=== PATIENT | male | born 1965 | race Asian ===

== ENCOUNTER 2021-08-11 10:09 | Outpatient (RCR) | payer OTHER, SELFPAY | END 2021-08-19 12:32 | disposition home or self-care (01) | LOC: HO.WCC 10:09 | PROVIDERS: PCP Physician Assistant Medical; Referring Provider Physician Assistant Medical; Visit Provider Surgery | DX: S30.821A Blister (nonthermal) of abdominal wall, initial encounter (principal); T83.038D Leakage of other urinary catheter, subsequent encounter; G82.51 Quadriplegia, C1-C4 complete; Z87.891 Personal history of nicotine dependence; Z79.899 Other long term (current) drug therapy | CPT/HCPCS: 10140; 99212 ==

== ENCOUNTER 2021-09-13 11:22 | Outpatient (RCR) | payer OTHER, SELFPAY | END 2021-09-29 11:35 | disposition home or self-care (01) | LOC: HO.WCC 11:22 | PROVIDERS: PCP Physician Assistant Medical; Visit Provider Physician Assistant | DX: Z09 Encounter for follow-up examination after completed treatment for conditions other than malignant neoplasm (principal); L30.9 Dermatitis, unspecified; G82.50 Quadriplegia, unspecified; Z87.891 Personal history of nicotine dependence; Z99.3 Dependence on wheelchair; Z87.2 Personal history of diseases of the skin and subcutaneous tissue | CPT/HCPCS: 99212 ==

== ENCOUNTER 2023-05-25 07:55 | Emergency (ER) | payer OTHER, MEDICAID, SELFPAY ==
[2023-05-25 08:04] VITALS: BP 136/90; BP 146/79; PULSE 74; PULSE 79; RESP 17; TEMP 36.9; O2SAT 95; O2SAT 96; BMI 25.0
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
--- OUTSIDE RECORDS SUMMARY | 2023-05-25 08:27 | XMS_ITS | Continuity of Care Document ---
Author Name Unknown Organization [facility] Address [address] [place] [address] [address], [address] [place] [address]- Care Team Providers Care Head Automatic Sawyer Name Role Phone Allie Souza MD Primary Care Physician Encounter [facility] Date(s): 08/02/21 - 09/15/21 [facility] [address] [place] [address] Drive, [address] [place], [place] [address] Attending Physician: Nina Lyn MD Referring Physician: Allie Souza MD Allergies, Adverse Reactions, Alerts Substance Reaction Severity Status NKA Active Immunizations Given and Recorded Vaccine Date Status Refusal Reason influenza virus vaccine, inactivated 08/17/16 Give n influenza virus vaccine, inactivated 08/05/15 Give n influenza virus vaccine, inactivated 08/08/14 Give n influenza virus vaccine, inactivated 1 10/31/12 Gi clarice tetanus-diphtheria toxoids (Td) 03/20/07 Given 1Admin Note: [facility] Medications baclofen 20 mg oral tablet See Instructions, 1 tablet By Mouth morning & afternoon and 1.5 to 2 tablets at night., # 120 tablet, Refills 0, Maintenance, 07/15/21 10:17:00 EDT, Instructions Replace Required Details, Partialfill upon patient request if the prescription is for a... Start Date: 07/15/21 Status: Ordered bisacodyl 10 mg rectal suppository 1 supp = 10 mg, Rectally, Daily in AM, 0 Refills, Maintenance, 03/08/21 11:23:00 EDT, Suppository, Partial fill upon patient request if the prescription is for a schedule II opioid drug. Start Date: 03/08/21 Status: Ordered Colace sodium 100 mg oral capsule 100 mg, 1, capsule, By Mouth, 3 times a day, Refills 0, Maintenance, 03/08/21 11:23:00 EDT, Partialfill upon patient request if the prescription is for a schedule II opioid drug. Start Date: 03/08/21 Status: Ordered gabapentin 300 mg oral capsule See Instructions, 2 capsules by Mouth 3 times a day and 2-3 capsules at night, # 270, Refills 5, Maintenance, 07/20/21 12:04:00 EDT, Instructions Replace Required Details, Partial fill upon patient request if the prescription is for a schedule II opio... Start Date: 07/20/21 Status: Ordered oxybutynin 5 mg/24 hours oral tablet, extended release 1 tablet = 5 mg, By Mouth, Daily at bedtime, # 30 tablet, 0 Refills, Maintenance, 08/11/21 15:56:00EDT, ER Tablet, Partial fill upon patient request if the prescription is for a schedule II opioid drug. Start Date: 08/11/21 Status: Ordered PriLOSEC OTC 20 mg oral delayed release tablet 1 tablet = 20 mg, By Mouth, Daily in AM, # 90 tablet, 0 Refills, Maintenance, 07/15/21 10:16:00 EDT, CR Tablet, Partial fill upon patient request if the prescription is for a schedule II opioid drug. Start Date: 07/15/21 Status: Ordered PT EVAL and TX PT EVAL and TX, See Instructions, Refills 0, Tot. Refills 0, Maintenance, bilat CTS and cervical strain, 03/27/14 15:22:36, 10 week(s), Compound Start Date: 03/27/14 Status: Ordered right carpal tunnel splint right carpal tunnel splint, See Instructions, # 1 each, Refills 0, Tot. Refills 0, Maintenance, CTS, 03/27/14 15:25:10, Compound Start Date: 03/27/14 Status: Ordered senna 187 mg oral tablet 2 tablet = 17.2 mg, By Mouth, Daily at bedtime, 0 Refills, Maintenance, 03/08/21 11:23:00 EDT, Tablet, Partial fill upon patient request if the prescription is for a schedule II opioid drug. Start Date: 03/08/21 Status: Ordered tiZANidine 4 mg oral capsule 2 capsule = 8 mg, By Mouth, 3 times a day, # 90 capsule, 0 Refills, Maintenance, 07/15/21 10:23:00 EDT, Capsule, Partial fill upon patient request if the prescription is for a schedule II opioid drug. Start Date: 07/15/21 Status: Ordered traZODone 50 mg oral tablet 50 mg, 1, tablet, By Mouth, Daily at bedtime, # 30 tablet, Refills 0, Maintenance, 07/15/21 10:23:00 EDT, Partial fill upon patient request if the prescription is for a schedule II opioid drug. Start Date: 07/15/21 Status: Ordered Tylenol 325 mg oral tablet 650 mg, 2, tablet, By Mouth, Every 4 hours, PRN, Refills 0, Maintenance, Pain , Mild, 03/08/21 11:22:00 EDT, Partial fill upon patient request if the prescription is for a schedule II opioid drug. Start Date: 03/08/21 Status: Ordered Valium 5 mg oral tablet 5 mg, 1, tablet, By Mouth, 2 times a day, Refills 0, Maintenance, 05/26/21 12:24:00 EDT, Partial fill upon patient request if the prescription is for a schedule II opioid drug. Start Date: 05/26/21 Status: Ordered Vitamin D3 2000 intl units oral capsule 1 capsule = 50 mcg, By Mouth, Daily in AM, # 60 capsule, 0 Refills, Maintenance, 07/15/21 10:18:00 EDT, Capsule, Partial fill upon patient request if the prescription is for a schedule II opioid drug. 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
--- OUTSIDE RECORDS SUMMARY | 2023-05-25 08:27 | XMS_ITS | Continuity of Care Document ---
Author Name Unknown Organization [facility] Address Unknown Care Team Providers Care Director Of Research And Development Name Role Phone Harley CHA, Allie Guzman Primary Care Physician [phone] Encounter [facility] [place] Date(s): 10/13/21 - 11/12/21 [facility] Allergies, Adverse Reactions, Alerts No Known Allergies Immunizations Given and Recorded Vaccine Date Status Refusal Reason influenza virus vaccine, inactivated 08/17/16 Give n influenza virus vaccine, inactivated 08/05/15 Give n influenza virus vaccine, inactivated 08/08/14 Give n influenza virus vaccine, inactivated 1 10/31/12 Gi clarice tetanus-diphtheria toxoids (Td) 03/20/07 Given 1Admin Note: [facility] Medications baclofen 20 mg oral tablet See Instructions, 1.5 tablet By Mouth Morning and night, 1.5-2 tablets midday., # 150 tablet, Refills 5, Tot. Refills 5, Maintenance, 10/20/21 15:43:00 EST, Instructions Replace Required Details, Route to Pharmacy Electronically, [facility]/pharmacy #[id number], 1... Start Date: 10/20/21 Status: Ordered bisacodyl 10 mg rectal suppository [...] opioid drug. Start Date: 07/15/21 Status: Ordered tiZANidine 4 mg oral tablet 12 mg, 3, tablet, By Mouth, 3 times a day, # 270 tablet, Refills 5, Tot. Refills 5, Maintenance, 10/20/21 15:46:00 EST, Route to Pharmacy Electronically, [facility]/pharmacy #[id number], 170, cm, 10/07/21 14:16:00 EST, Height, 70.4, kg, 07/15/21 10:52:00 EDT, Dry... Start Date: 10/20/21 Status: Ordered traZODone 50 mg oral tablet [...]
--- OUTSIDE RECORDS SUMMARY | 2023-05-25 08:27 | XMS_ITS | Continuity of Care Document ---
Author Name Unknown Organization [facility] Address [address] [place] [id number]- Care Team Providers Care Tool Filer Hand Name Role Phone Allie Souza MD Primary Care Physician Encounter [facility] Date(s): 12/04/22 - 12/11/22 [facility] [address] [place] [id number]- Attending Physician: Manoj Price MD Referring Physician: Allie Souza MD Allergies, Adverse Reactions, Alerts No Known Allergies [...] tablet, Refills 5, Tot. Refills 5, Maintenance, 02/16/22 16:48:00 EDT, Instructions Replace Required Details, Route to Pharmacy Electronically, [facility]/pharmacy #[id number], 1... Start Date: 02/16/22 Status: Ordered bisacodyl 10 mg rectal suppository 1 supp = 10 mg, Rectally, Daily in AM, 0 Refills, Maintenance, 03/08/21 11:23:00 EDT, Suppository, Partial fill upon patient request if the prescription is for a schedule II opioid drug. Start Date: 03/08/21 Status: Ordered Botox 100 units injection See Instructions, 400 units for MD to inject, # 1 kit, 0 Refills, Maintenance, 01/26/22 16:29:00 EDT, Partial fill upon patient request if the prescription is for a schedule II opioid drug. Start Date: 01/26/22 Status: Ordered Colace sodium 100 mg oral capsule 100 mg, 1, capsule, By Mouth, 3 times a day, Refills 0, Maintenance, 03/08/21 11:23:00 EDT, Partialfill upon patient request if the prescription is for a schedule II opioid drug. Start Date: 03/08/21 Status: Ordered gabapentin 300 mg oral capsule 300 mg, 1, capsule, By Mouth, 3 times a day, Refills 0, Maintenance, 11/22/22 17:14:00 EST, Partialfill upon patient request if the prescription is for a schedule II opioid drug. Start Date: 11/22/22 Status: Ordered gabapentin 300 mg oral capsule See Instructions, Continue current ramp-up to 3 capsules in a.m. and 4 capsules afternoon and night., # 330 capsule, Refills 5, Tot. Refills 5, Maintenance, 11/28/22 13:44:00 EST, Instructions Replace Required Details, Print Requisition, 170, cm, 07/22... Start Date: 11/28/22 Status: Ordered oxybutynin 5 mg/24 hours oral [...] 03/27/14 15:22:36, 10 week(s), Compound Start Date: 6/6/14 Status: Ordered right carpal tunnel splint right [...] 03/08/21 Status: Ordered tiZANidine 4 mg oral tablet 3, tablet, By Mouth, 3 times a day, # 270 tablet, Refills 5, Route to Pharmacy Electronically, [id number], 170, cm, 04/03/22 8:23:00 EDT, Height, 70.4, kg, 07/15/21 10:52:00 EDT, Dry Weight Start Date: 06/09/22 Status: Ordered traZODone 50 mg oral tablet [...] Date: 07/15/21 Status: Ordered Problem List Condition Confirmation Course Effective Dates Status Health St atus Informant Abstinent alcoholic Confirmed Active Neurogenic bladder due to quadriplegia Confirmed Active Neurogenic bowel Confirmed Active Neuropathic pain Confirmed Active Therapeutic drug monitoring Confirmed Active Spasticity Confirmed Active Chronic tetraplegia Confirmed Active Vital Signs Most recent to oldest [Reference Range]: 1 Height 170 cm (12/04/22 9:58 AM) Oxygen Saturation [94-100 %] 97 % (12/04/22 9:58 AM) Pulse Rate [55-90 bpm] 63 bpm (12/04/22 9:58 AM) Blood Pressure [90-138/55-84 mm Hg] 118/ 86mm Hg (12/04/22 9:58 AM) Mode of Delivery (Oxygen) Room air (12/04/22 9:58 AM) Blood pressure sites Arm, left (12/04/22 9:58 AM) Social History Social History Type Response Smoking Status Former smoker; Tobac co user in household: No entered on: 03/27/14 Sex Patient Care team information Care Team Personnel Name: Bryn Peters RN Position: [facility] RN Member Role: Primary Care Nurse Name: Jose Roberto Barakat RN Position: [facility] RN Member Role: Primary Care Nurse Name: Faustina Jarrell RN Position: [facility] RN Member Role: Primary Care Nurse Name: Katya Moore RN Position: [facility] RN Member Role: Primary Care Nurse Name: Meir Lange RN Position: [facility] RN Member Role: Primary Care Nurse Name: Charley Gamble RN Position: [facility] RN Member Role: Primary Care Nurse Name: Allie Souza MD Position: [facility] Outreach Member Role: PCP Address: Address: [address] [place] [address] Name: Key Dewitt RN Position: [facility] RN Member Role: Primary Care Nurse Care Team Related Persons Name: AIDEN GARCÍA Address: home [address] [place] [address]
--- OUTSIDE RECORDS SUMMARY | 2023-05-25 08:27 | XMS_ITS | Continuity of Care Document ---
Author Name Unknown Organization [facility] Address Unknown Care Team Providers Care Printer'S Devil Name Role Phone Harley CHA, Allie Guzman Primary Care Physician Encounter [facility] Date(s): 10/13/21 - 11/12/21 [facility] Allergies, Adverse [...] Replace Required Details, Route to Pharmacy Electronically, [facility]/pharmacy #[id number], 1... Start Date: 10/20/21 Status: Ordered [...] 10/20/21 15:46:00 EST, Route to Pharmacy Electronically, [facility]/pharmacy #[id number], 170, cm, 10/07/21 14:16:00 EST, Height, [...]
--- OUTSIDE RECORDS SUMMARY | 2023-05-25 08:27 | XMS_ITS | Continuity of Care Document ---
Author Name Unknown Organization [facility] Address [address] [place] [id number]- Care Team Providers Care Technical Illustrator Name Role Phone Allie Souza MD Primary Care Physician [phone] Encounter [facility] Date(s): 12/19/22 - 01/18/23 [facility] [address] [place] [id number]- Allergies, Adverse Reactions, Alerts No Known Allergies Immunizations Given and Recorded Vaccine Date Status Refusal Reason influenza virus vaccine, inactivated 08/17/16 Give n influenza virus vaccine, inactivated 08/05/15 Give n influenza virus vaccine, inactivated 08/08/14 Give n influenza virus vaccine, inactivated 1 10/31/12 Gi clariec tetanus-diphtheria toxoids (Td) 03/20/07 Given 1Admin Note: [facility] Medications baclofen 20 mg oral tablet See Instructions, 1.5 tablet By Mouth Morning and night, 1.5-2 tablets midday., # 150 tablet, Refills 5, Tot. Refills 5, Maintenance, 12/15/22 12:37:00 EST, Instructions Replace Required Details, Route to Pharmacy Electronically, [facility]/pharmacy #2024, 1... Start Date: 12/15/22 Status: Ordered bisacodyl 10 mg rectal suppository [...] drug. Start Date: 11/22/22 Status: Ordered gabapentin 800 mg oral tablet See Instructions, 1 tablet By Mouth in a.m. and 1.5 tablets afternoon & nighttime., # 120 tablet, 5 Refills, Maintenance, 12/19/22 13:48:00 EST, Tablet, [facility]/pharmacy #[id number], Partial fill upon patient request if the prescription is for a schedule II opi... Start Date: 12/19/22 Status: Ordered oxybutynin 5 mg/24 hours oral [...] 270 tablet, Refills 5, Tot. Refills 5, 01/04/23 11:46:00 EDT,Route to Pharmacy Electronically, [facility]/pharmacy #2025, 170, cm, 01/04/23 11:17:00 EDT, Height, 70.4,kg, 07/15/21 10:52:00 EDT, Dry Weight Start Date: 01/04/23 Status: Ordered traZODone 50 mg oral tablet [...] Spasticity Confirmed Active Chronic tetraplegia Confirmed Active Social History Social History Type Response Smoking Status Former smoker; Tobac co user in household: No entered on: 03/27/14 Sex Patient Care team information Care Team Personnel Name: Bryn Peters RN Position: S RN Member Role: Primary Care Nurse Name: Jose Roberto Barakat RN Position: S RN Member Role: Primary Care Nurse Name: Faustina Jarrell RN Position: [facility] RN Member Role: Primary Care Nurse Name: Katya Moore RN Position: [facility] RN Member Role: Primary Care Nurse Name: Meir Lange RN Position: [facility] RN Member Role: Primary Care Nurse Name: Charley Gamble RN Position: [facility] RN Member Role: Primary Care Nurse Name: Allie Souza MD Position: [facility] Outreach Member Role: PCP Address: Address: [address] [place] [id number] Name: Key Dewitt RN Position: [facility] RN Member Role: Primary Care Nurse Care Team Related Persons Name: AIDEN GARCÍA Address: home [address] [place] [address]
--- OUTSIDE RECORDS SUMMARY | 2023-05-25 08:27 | XMS_ITS | Continuity of Care Document ---
Author Name Unknown Organization [facility] Address [address] [place], [place] [address]blanco spangler, [address] [place] [address]- Care Team Providers Care Yeast Culture Developer Name Role Phone Harley CHA, Allie Guzman Primary Care Physician [place] [facility] [place] 07[place]21 [facility] [address] [place] [address] Drive, [address] [place] [address]- Allergies, Adverse Reactions, Alerts Substance Reaction Severity Status NKA Active Immunizations Given and Recorded Vaccine Date Status Refusal Reason influenza virus vaccine, inactivated 08/17/16 Give n influenza virus vaccine, inactivated 08/05/15 Give n influenza virus vaccine, inactivated 08/08/14 Give n influenza virus vaccine, inactivated 1 10/31/12 Gi clarice tetanus-diphtheria toxoids (Td) 03/20/07 Given 1Admin Note: [facility] Artificial Tears 1.4% Eyes, Both, Every 4 hours, PRN Other, Dryness., 0 Refills, Maintenance, 03/08/21 11:23:00 EDT, Ophth Solution, Partial fill upon patient request if the prescription is for a schedule II opioid drug. Start Date: 03/08/21 Status: Ordered bisacodyl 10 mg rectal suppository 1 supp = 10 mg, Rectally, Daily in AM, 0 Refills, Maintenance, 03/08/21 11:23:00 EDT, Suppository, Partial fill upon patient request if the prescription is for a schedule II opioid drug. Start Date: 03/08/21 Status: Ordered Colace sodium 100 mg oral capsule 100 mg, 1, capsule, By Mouth, 2 times a day, Refills 0, Maintenance, 03/08/21 11:23:00 EDT, Partialfill upon patient request if the prescription is for a schedule II opioid drug. Start Date: 03/08/21 Status: Ordered Duoneb Inhalation Solution 1, vials, BAND Nebulizer, 4 times a day, Refills 0, Maintenance, 03/08/21 11:23:00 EDT, Inhalation Solution Start Date: 03/08/21 Status: Ordered Enoxaparin 0.3 mL = 30 mg, Subcutaneous Injection, 2 times a day, 0 Refills, Maintenance, 03/08/21 11:23:00 EDT, Injection, Partial fill upon patient request if the prescription is for a schedule II opioid drug. Start Date: 03/08/21 Status: Ordered gabapentin 100 mg oral capsule 100 mg, 1, capsule, By Mouth, 3 times a day, Refills 0, Maintenance, 03/08/21 11:23:00 EDT, Partialfill upon patient request if the prescription is for a schedule II opioid drug. Start Date: 03/08/21 Status: Ordered ibuprofen 200 mg oral tablet 2 tablet, By Mouth, Every 4 hours, PRN for pain, # 120 tablet, 0 Refills, Maintenance, 07/08/14 7:58:25, Tablet Start Date: 07/08/14 Status: Ordered Milk of Magnesia Liquid 30 mL, By Mouth, 2 times a day, PRN Constipation, 0 Refills, Maintenance, 03/08/21 11:23:00 EDT, Suspension, Partial fill upon patient request if the prescription is for a schedule II opioid drug. Start Date: 03/08/21 Status: Ordered PT EVAL and TX PT [...] opioid drug. Start Date: 03/08/21 Status: Ordered tamsulosin 0.4 mg oral capsule 0.4 mg, 1, capsule, By Mouth, Daily, Refills 0, Maintenance, 03/08/21 11:23:00 EDT, Partial fill upon patient request if the prescription is for a schedule II opioid drug. Start Date: 03/08/21 Status: Ordered Tylenol 325 mg oral tablet [...] opioid drug. Start Date: 05/26/21 Status: Ordered Problem List Condition Effective Dates Status Health Status Inform ant Abstinent alcoholic(Confirmed) Active Social History Social History Type Response Smoking Status Former smoker; Tobac co user in household: No entered on: 03/27/14 Sex
--- OUTSIDE RECORDS SUMMARY | 2023-05-25 08:27 | XMS_ITS | Continuity of Care Document ---
Author Name Unknown Organization [facility] Address [address] [place] [address]- Care Team Providers Care Ship Keeper Name Role Phone Harley CHA, Allie Guzman Primary Care Physician [place] [facility] [place] Date(s): 09/18/22 - 10/18/22 [facility] [address] [place] [address]- Allergies, Adverse Reactions, Alerts No Known Allergies [...] Replace Required Details, Route to Pharmacy Electronically, [facility]/pharmacy #[id number], 1... Start Date: 02/16/22 Status: [...] opioid drug. Start Date: 03/08/21 Status: Ordered oxybutynin 5 mg/24 hours oral tablet, extended release 1 tablet = 5 mg, By Mouth, Daily at bedtime, # 30 tablet, 0 Refills, Maintenance, 08/11/21 15:56:00EDT, ER Tablet, Partial fill upon patient request if the prescription is for a schedule II opioid drug. Start Date: 08/11/21 Status: Ordered pregabalin 300 mg oral capsule 1 capsule = 300 mg, By Mouth, 2 times a day, Patient is on an increased dose. He ran out early as Itold him to double his previous dose & use up his 150 mg tablets., # 60 capsule, 5 Refills, Maintenance, 10/06/22 10:52:00 EST, Capsule, 170, cm, 08/09... Start Date: 10/06/22 Status: Ordered PriLOSEC OTC 20 mg oral [...] tablet, Refills 5, Route to Pharmacy Electronically, [id number], 170, cm, 04/03/22 8:23:00 EDT, Height, 70.4, [...] Jose Roberto Barakat RN Position: [facility] RN Member Role: Primary Care Nurse Name: Faustina Jarrell RN Position: [facility] RN Member Role: Primary Care Nurse Name: Katya Moore RN Position: [facility] RN Member Role: Primary Care Nurse Name: Meir Lange RN Position: [facility] RN Member Role: Primary Care Nurse Name: Charley Gamble RN Position: [facility] RN Member Role: Primary Care Nurse Name: Allie Souza MD Position: [facility] Outreach Member Role: PCP Address: Address: [address] [place] [id number] Name: Key Dewitt RN Position: [facility] RN Member Role: Primary Care Nurse Care Team Related Persons Name: ERINMYALauryn AIDEN Address: [address] [address]
--- OUTSIDE RECORDS SUMMARY | 2023-05-25 08:27 | XMS_ITS | Continuity of Care Document ---
Author Name Unknown Organization [facility] Address [address] [place] [address] an[address]bal, [address] [place] [address]- Care Team Providers Care Maintenance Mechanic Telephone Name Role Phone Allie Souza MD Primary Care Physician [phone] Encounter [facility] [place] Date(s): 03/17/21 - 05/19/21 [facility] [address] [place] [address] Drive, [address] [place] [address]- Attending Physician: Nina Lyn MD Allergies, Adverse Reactions, Alerts Substance Reaction [...] opioid drug. Start Date: 03/08/21 Status: Ordered Problem List Condition Effective Dates Status Health Status Inform ant Abstinent alcoholic(Confirmed) Active Social History Social History Type Response Smoking Status Former smoker; Tobac co user in household: No entered on: 03/27/14 Sex
--- OUTSIDE RECORDS SUMMARY | 2023-05-25 08:27 | XMS_ITS | Continuity of Care Document ---
Author Name Unknown Organization [facility] Address [address] [place] [address]- Care Team Providers Care Sewing Machine Operator Paper Bags Name Role Phone Allie Souza MD Primary Care Physician [place] [facility] [place] - 11/19/22 [facility] [address]- [place] Allergies, Adverse Reactions, Alerts No Known Allergies [...] Replace Required Details, Route to Pharmacy Electronically, [facility]/pharmacy #2024, 1... Start Date: 02/16/22 Status: [...] tablet, Refills 5, Route to Pharmacy Electronically, [id number], 170, cm, 04/03/22 8:23:00 EDT, Height, 70.4, [...] Care team information Care Team Personnel Name: Lorraine CHRISTIAN, Bryn Position: [facility] RN Member Role: Primary Care Nurse Name: Jose Roberto Barakat RN Position: [facility] RN Member Role: Primary Care Nurse Name: Faustina Jarrell RN Position: [facility] RN Member Role: Primary Care Nurse Name: Katya Moore RN Position: [facility] RN Member Role: Primary Care Nurse Name: Anisa CHRISTIAN, Meir Position: [facility] RN Member Role: Primary Care Nurse Name: Charley Gamble RN Position: [facility] RN Member Role: Primary Care Nurse Name: Allie Souza MD Position: [facility] Outreach Member Role: PCP Address: Address: [address] [place] [id number] Name: Key Dewitt RN Position: [facility] RN Member Role: Primary Care Nurse Care Team Related Persons Name: ERINAIDEN BRAN Address: [address] [address]
--- OUTSIDE RECORDS SUMMARY | 2023-05-25 08:27 | XMS_ITS | Continuity of Care Document ---
Author Name Unknown Organization [facility] Address [address] [place] [address]- Care Team Providers Care Chain Machine Operator Name Role Phone Harley CHA, Allie Guzman Primary Care Physician Encounter [facility] [place] Date(s): 02/26/23 - 03/28/23 [facility] [address] [place] [address]- Attending Physician: AdmJuan R chapman Admitting Physician: AdmtrJuan R Referring Physician: Admtr, Juan R Allergies, Adverse Reactions, Alerts No Known Allergies [...] Replace Required Details, Route to Pharmacy Electronically, [facility]/pharmacy #2024, 1... Start Date: 12/15/22 Status: Ordered [...] 5 Refills, Maintenance, 12/19/22 13:48:00 EST, Tablet, [facility]/pharmacy #5, Partial fill upon patient request if the [...] 5, 01/04/23 11:46:00 EDT,Route to Pharmacy Electronically, [facility]/pharmacy #2025, 170, cm, 01/04/23 11:17:00 EDT, Height, [...] Care Nurse Name: Faustina Jarrell RN Position: S RN Member Role: Primary Care Nurse Name: Katya Moore RN Position: S RN Member Role: Primary Care Nurse Name: Meir Lange RN Position: S RN Member Role: Primary Care Nurse Name: Charley Gamble RN Position: [facility] RN Member Role: Primary Care Nurse Name: Allie Souza MD Position: S Outreach Member Role: PCP Address: Address: [address] [place] [id number] Name: Key Dewitt RN Position: S RN Member Role: Primary Care Nurse Care Team Related Persons Name: ERINMYAAIDEN Combs Address: [address] [address]
--- OUTSIDE RECORDS SUMMARY | 2023-05-25 08:27 | XMS_ITS | Continuity of Care Document ---
Author Name Unknown Organization [facility] Address Unknown Care Team Providers Care Expeditionary Fighting Vehicle Crewman Name Role Phone Harley CHA, Allie Guzman Primary Care Physician [place] [facility] [place] 12[place]17/21 [facility] Attending Physician: Nehemiah CHA, Albert Csatillo Allergies, Adverse Reactions, Alerts No Known Allergies [...] Replace Required Details, Route to Pharmacy Electronically, [facility]/pharmacy #2024, 1... Start Date: 10/20/21 Status: Ordered [...] 10/20/21 15:46:00 EST, Route to Pharmacy Electronically, [facility]/pharmacy #2025, 170, cm, 10/07/21 14:16:00 EST, Height, [...]
--- OUTSIDE RECORDS SUMMARY | 2023-05-25 08:27 | XMS_ITS | Continuity of Care Document ---
Author Name Unknown Organization [facility] Address [address] [place] [address]- Care Team Providers Care Transport Conductor Name Role Phone Allie Souza MD Primary Care Physician [phone] [id number] Date[facility] 07/20/[facility] - 07/27/22 [facility] [address] [place] [address]- Attending Physician: Albert Cerna MD Referring Physician: Allie Souza MD Allergies, [...] Replace Required Details, Route to Pharmacy Electronically, [facility]/pharmacy #2024, 1... Start Date: 02/16/22 Status: [...] opioid drug. Start Date: 03/08/21 Status: Ordered Cymbalta 30 mg oral enteric coated capsule 1 capsule = 30 mg, By Mouth, 2 times a day, Take 1 tablet daily for 1 week then increase to 2 tablets if tolerating well., # 60 capsule, 5 Refills, Maintenance, 07/20/22 14:46:00 EDT, EC Capsule, [id number], 170, cm, 07/20/22 14:03:00... Start Date: 07/20/22 Status: Ordered gabapentin 300 mg oral capsule See Instructions, 3 capsules by Mouth in the morning & 4 capsules afternoon & night., # 330capsule, Refills 4, Tot. Refills 4, Maintenance, 03/14/22 8:50:00 EDT, Instructions Replace Required Details, Route to Pharmacy Electronically, [facility]/pharmacy #2... Start Date: 03/14/22 Status: Ordered oxybutynin 5 mg/24 hours oral [...] tablet, Refills 5, Route to Pharmacy Electronically, [id number], 170, cm, 04/03/22 8:23:00 EDT, Height, 70.4, [...] oldest [Reference Range]: 1 Height 170 cm (07/20/22 2:03 PM) Oxygen Saturation [94-100 %] 97 % (07/20/22 2:03 PM) Pulse Rate [55-90 bpm] 67 bpm (07/20/22 2:03 PM) Blood Pressure [90-138/55-84 mm Hg] 114/ 71mm Hg (07/20/22 2:03 PM) Mode of Delivery (Oxygen) Room air (07/20/22 2:03 PM) Blood pressure sites Arm, right (07/20/22 2:03 PM) Social History Social History Type Response Smoking Status Former smoker; Tobac co user in household: No entered on: 03/27/14 Sex Patient Care team information Personnel Name: Harley CHA , Allie Guzman Address: Address: [address] [place] [address]
--- OUTSIDE RECORDS SUMMARY | 2023-05-25 08:27 | XMS_ITS | Continuity of Care Document ---
Author Name Unknown Organization [facility] Address [address] [place] [address]- Care Team Providers Care Public Health Teacher Name Role Phone Allie Souza MD Primary Care Physician [phone] Encounter [facility] [place] Date(s): 07/21/21 - 07/21/[address] [address]- Discharge Disposition: A-D/C Home Attending Physician: Alan Aleman MD Admitting Physician: Alan Aleman MD Referring Physician: Alan Aleman MD Allergies, Adverse Reactions, Alerts Substance Reaction [...] II opio... Start Date: 07/20/21 Status: Ordered PriLOSEC OTC 20 mg oral [...] Active Neurogenic bowel(Confirmed) Active Neuropathic pain(Confirmed) Active Spasticity(Confirmed) Active Chronic tetraplegia(Confirmed) Active Vital Signs Most recent to oldest [Reference Range]: 1 2 3 Height 170 cm (07/21/21 2:40 PM) 170 cm (07/15/21 8:55 AM) Weight 70.4 kg (07/21/21 2:40 PM) 70.4 kg (07/15/21 8:55 AM) Oxygen Saturation [94-100 %] 94 % (07/21/21 5:00 PM) 96 % (07/21/21 4:45 PM) 100 % (07/21/21 4:30 PM) Pulse Rate [55-90 bpm] 85 bpm (07/21/21 2:40 PM) Body Mass Index [18.5-24.99] 24.36 (07/21/21 2:40 PM) 24.36 (07/15/21 8:55 AM) Blood Pressure [90-138/55-84 mm Hg] 126/90mm Hg (07/21/21 5:00 PM) 122/84mm Hg (07/21/21 4:45 PM) 123/78mm Hg (07/21/21 4:30 PM) Respiratory Rate [16-30 br/min] 15 br/min *L* (07/21/21 5:00 PM) 15 br/min *L* (07/21/21 4:45 PM) 10 br/min *L* (07/21/21 4:30 PM) Temperature [96.8-100.4 DegF] 98.9 DegF (07/21/21 5:00 PM) 99.3 DegF (07/21/21 4:15 PM) 98.8 DegF (07/21/21 2:40 PM) Liters per Minute 5 L/min (07/21/21 4:15 PM) Mode of Delivery (Oxygen) Room air (07/21/21 5:00 PM) Room air (07/21/21 4:45 PM) Simple face mask (07/21/21 4:30 PM) Blood pressure sites Arm, right (07/21/21 5:00 PM) Arm, right (07/21/21 4:45 PM) Arm, right (07/21/21 4:30 PM) Temperature Route Temporal (07/21/21 5:00 PM) Temporal (07/21/21 4:15 PM) Temporal (07/21/21 2:40 PM) Dry Weight 70.4 kg (07/15/21 8:55 AM) Weight Obtained Via Patient/family state d (07/15/21 8:55 AM) Dry Weight Obtained Via Patient/family s tated (07/15/21 8:55 AM) Social History Social History Type Response Smoking Status Former smoker; Tobac co user in household: No entered on: 03/27/14 Sex
--- OUTSIDE RECORDS SUMMARY | 2023-05-25 08:27 | XMS_ITS | Continuity of Care Document ---
Author Name Unknown Organization [facility] Address Unknown Care Team Providers Care Hose Maker Name Role Phone Allie Souza MD Primary Care Physician Encounter [facility] [place] Date(s): 03/13/22 - 04/12/22 [facility] Allergies, Adverse [...] Replace Required Details, Route to Pharmacy Electronically, [facility]/pharmacy #2024, 1... Start Date: 02/16/22 Status: Ordered [...] Replace Required Details, Route to Pharmacy Electronically, [facility]/pharmacy #2... Start Date: 03/14/22 Status: Ordered oxybutynin [...] 10/20/21 15:46:00 EST, Route to Pharmacy Electronically, [facility]/pharmacy #2025, 170, cm, 10/07/21 14:16:00 EST, Height, [...]
--- OUTSIDE RECORDS SUMMARY | 2023-05-25 08:27 | XMS_ITS | Continuity of Care Document ---
Author Name Unknown Organization [facility] Address Unknown Care Team Providers Care Voucher Clerk Name Role Phone Allie Souza MD Primary Care Physician [phone] Encounter [facility] [place] Date(s): 03/08/22 - 04/07/22 [facility] Allergies, Adverse Reactions, [...] Details, Route to Pharmacy Electronically, [facility]/pharmacy #2024, 1... Start Date: 02/16/22 Status: Ordered [...] Details, Route to Pharmacy Electronically, [facility]/pharmacy #2... Start Date: 03/14/22 Status: Ordered oxybutynin [...] EST, Route to Pharmacy Electronically, [facility]/pharmacy #2025, 170, cm, 10/07/21 14:16:00 [...]
--- OUTSIDE RECORDS SUMMARY | 2023-05-25 08:27 | XMS_ITS | Continuity of Care Document ---
Author Name Unknown Organization [facility] Address Unknown Care Team Providers Care Home Care Specialist Name Role Phone Allie Souza MD Primary Care Physician [phone] Encounter [facility] [place] Date(s): 02/16/22 - 03/18/22 [facility] Allergies, Adverse [...] Replace Required Details, Route to Pharmacy Electronically, [facility]/pharmacy #2024, 1... Start Date: 02/16/22 [...] Replace Required Details, Route to Pharmacy Electronically, [facility]/pharmacy #2... Start Date: 03/14/22 Status: [...] 10/20/21 15:46:00 EST, Route to Pharmacy Electronically, [facility]/pharmacy #2025, 170, cm, 10/07/21 14:16:00 [...]
--- OUTSIDE RECORDS SUMMARY | 2023-05-25 08:27 | XMS_ITS | Continuity of Care Document ---
Author Name Unknown Organization [facility] Address Unknown Care Team Providers Care Glove Sewer Name Role Phone Allie Souza MD Primary Care Physician [phone] En[place] [facility] [place] [id number] Date(s): 12/22/21 - 12/29/21 [facility] Attending Physician: Allie Souza MD Allergies, Adverse Reactions, [...] Replace Required Details, Route to Pharmacy Electronically, [facility]/pharmacy #2024, 1... Start Date: 10/20/21 Status: [...] 10/20/21 15:46:00 EST, Route to Pharmacy Electronically, [facility]/pharmacy #2025, 170, cm, 10/07/21 14:16:00 EST, [...] monitoring(Confirmed) Active Spasticity(Confirmed) Active Chronic tetraplegia(Confirmed) Active Vital Signs Most recent to oldest [Reference Range]: 1 Height 170 cm (12/22/21 12:55 PM) Oxygen Saturation [94-100 %] 98 % (12/22/21 12:55 PM) Pulse Rate [55-90 bpm] 74 bpm (12/22/21 12:55 PM) Blood Pressure [90-138/55-84 mm Hg] 114/ 73mm Hg (12/22/21 12:55 PM) Temperature [96.8-100.4 DegF] 97.0 DegF (12/22/21 12:55 PM) Blood pressure sites Arm, left (12/22/21 12:55 PM) Temperature Route Temporal (12/22/21 12:55 PM) Social History Social History Type Response Smoking Status Former smoker; Tobac co user in household: No entered on: 03/27/14 Sex
--- OUTSIDE RECORDS SUMMARY | 2023-05-25 08:27 | XMS_ITS | Continuity of Care Document ---
Author Name Unknown Organization [facility] Address [address] [place] [address]- Care Team Providers Care Infusion Pharmacist Name Role Phone Harley CHA, Allie Guzman Primary Care Physician En[place] [facility] [place] Date(s): 01/04/23 - 01/11/23 [facility] [address] [place] [address]- Attending Physician: Albert Cerna MD Allergies, Adverse Reactions, Alerts No Known [...] Replace Required Details, Route to Pharmacy Electronically, [facility]/pharmacy #2024, 1... Start Date: 12/15/22 Status: Ordered [...] 5 Refills, Maintenance, 12/19/22 13:48:00 EST, Tablet, [facility]/pharmacy #2024, Partial fill upon patient request if [...] 5, 01/04/23 11:46:00 EDT,Route to Pharmacy Electronically, [facility]/pharmacy #2025, 170, cm, 01/04/23 11:17:00 EDT, Height, [...] oldest [Reference Range]: 1 Height 170 cm (01/04/23 11:17 AM) Oxygen Saturation [94-100 %] 96 % (01/04/23 11:17 AM) Pulse Rate [55-90 bpm] 69 bpm (01/04/23 11:17 AM) Blood Pressure [90-138/55-84 mm Hg] 118/ 81mm Hg (01/04/23 11:17 AM) Mode of Delivery (Oxygen) Room air (01/04/23 11:17 AM) Blood pressure sites Arm, right (01/04/23 11:17 AM) Social History Social History Type Response Smoking Status Former smoker; Tobac co user in household: No entered on: 03/27/14 Sex Patient Care team information Care Team Personnel Name: Bryn Peters RN Position: [facility] RN Member Role: Primary Care Nurse Name: Jose Roberto Barakat RN Position: [facility] RN Member Role: Primary Care Nurse Name: Faustina Jarrell RN Position: [facility] RN Member Role: Primary Care Nurse Name: Katya Moore RN Position: [facility] RN Member Role: Primary Care Nurse Name: Meir Lange RN Position: [facility] RN Member Role: Primary Care Nurse Name: Charley Gamble RN Position: [facility] RN Member Role: Primary Care Nurse Name: Allie Souza MD Position: S Outreach Member Role: PCP Address: Address: [address] [place] [id number] Name: Key Dewitt RN Position: [facility] RN Member Role: Primary Care Nurse Care Team Related Persons Name: AIDEN GARCÍA Address: home [address] [place] [address]
--- OUTSIDE RECORDS SUMMARY | 2023-05-25 08:27 | XMS_ITS | Continuity of Care Document ---
Author Name Unknown Organization [facility] Address [address] [place] [address]- Care Team Providers Care Sales And Production Manager Name Role Phone Harley CHA, Allie Guzman Primary Care Physician [place] [facility] [place] - 09/13/22 [facility] [address] [place] [address]- Allergies, Adverse Reactions, Alerts No Known Allergies [...] Replace Required Details, Route to Pharmacy Electronically, [facility]/pharmacy #2024, 1... Start Date: 02/16/22 Status: [...] drug. Start Date: 08/11/21 Status: Ordered pregabalin 150 mg oral capsule 1 capsule = 150 mg, By Mouth, 2 times a day, # 60 capsule, 0 Refills, Maintenance, 09/11/22 17:04:00 EST, Caps[facility], [facility], Partial fill upon patient request if the prescription is for a schedule II opioid drug., 170, cm, 08/09/22 9:41:00 E... Start Date: 09/11/22 Status: Ordered PriLOSEC OTC 20 mg oral [...] tablet, Refills 5, Route to Pharmacy Electronically, [facility], 170, cm, 04/03/22 8:23:00 EDT, Height, 70.4, [...] Care Nurse Name: Meir Lange RN Position: [facility] RN Member Role: Primary Care Nurse Name: Charley Gamble RN Position: [facility] RN Member Role: Primary Care Nurse Name: Allie Souza MD Position: S Outreach Member Role: PCP Address: Address: [address] [place] [id number] Name: Key Dewitt RN Position: [facility] RN Member Role: Primary Care Nurse Care Team Related Persons Name: AIDEN GARCÍA Address: home [address] [place] [address]
--- OUTSIDE RECORDS SUMMARY | 2023-05-25 08:27 | XMS_ITS | Continuity of Care Document ---
Author Name Unknown Organization [facility] Address [address] [place] [address]- Care Team Providers Care Feather Drying Machine Operator Name Role Phone Harley CHA, Allie Guzman Primary Care Physician [place] [facility] [place] 12[place]/22 [facility] [address] [place] [address]- Allergies, Adverse Reactions, Alerts No Known Allergies [...] 13:48:00 EST, Tablet, [facility]/pharmacy #5, Partial fill upon patient request if [...] tablet, Refills 5, Route to Pharmacy Electronically, [facility] 111[facility], 170, cm, 04/03/22 8:23:00 EDT, Height, 70.4, [...] Care Nurse Name: Katya Moore RN Position: [facility] RN Member Role: Primary Care Nurse Name: Meir Lange RN Position: [facility] RN Member Role: Primary Care Nurse Name: Charley Gamble RN Position: [facility] RN Member Role: Primary Care Nurse Name: Allie Souza MD Position: [facility] Outreach Member Role: PCP Address: Address: [address] [place] [id number] Name: Key Dewitt RN Position: [facility] RN Member Role: Primary Care Nurse Care Team Related Persons Name: AIDEN GARCÍA Address: [facility] [address] [place] [address]
--- OUTSIDE RECORDS SUMMARY | 2023-05-25 08:27 | XMS_ITS | Continuity of Care Document ---
Author Name Unknown Organization [facility]icine [facility] Rehabilitation Address Unknown Care Team Providers Care Alpine Patroller Name Role Phone Allie Souza MD Primary Care Physician [phone] Encounter [facility] [place] Date(s): 03/22/22 - 04/21/22 [facility] Allergies, [...] Pharmacy Electronically, [facility]/pharmacy #2... Start Date: 03/14/22 Status: Ordered [...] 15:46:00 EST, Route to Pharmacy Electronically, [facility]/pharmacy #2025, 170, cm, 10/07/21 14:16:00 EST, [...]
--- OUTSIDE RECORDS SUMMARY | 2023-05-25 08:27 | XMS_ITS | Continuity of Care Document ---
Author Name Unknown Organization [facility] Address [address] [place], [place] [address]blanco spangler, [address] [place] [address]- Care Team Providers Care Shorer Name Role Phone Harley CHA, Allie Guzman Primary Care Physician [phone] En[place] [facility] [place] Date(s): 06/28/21 - 07/28/21 [facility] [address] [place] [address] Drive, [address] [place], [place] [address] Attending Physician: Admari, Juan R Admitting Physician: AdmtrJuan R Referring Physician: Admtr, Ar8 Allergies, Adverse Reactions, Alerts Substance Reaction Severity [...] pain(Confirmed) Active Spasticity(Confirmed) Active Chronic tetraplegia(Confirmed) Active Social History Social History Type Response Smoking Status Former smoker; Tobac co user in household: No entered on: 03/27/14 Sex
--- OUTSIDE RECORDS SUMMARY | 2023-05-25 08:27 | XMS_ITS | Continuity of Care Document ---
Author Name Unknown Organization [facility] Address Unknown Care Team Providers Care Netbackup Administrator Name Role Phone Harley CHA, Allie Guzman Primary Care Physician [phone] [place] [facility] [place] 09/22/21 - 10/22/21 [facility] Allergies, Adverse Reactions, Alerts Substance Reaction Severity [...]
--- OUTSIDE RECORDS SUMMARY | 2023-05-25 08:27 | XMS_ITS | Continuity of Care Document ---
Author Name Unknown Organization [facility] Address Unknown Care Team Providers Care Infant And Toddler Teacher Name Role Phone Harley CHA, Allie Guzman Primary Care Physician En[place] [facility] [place] Date(s): 10/20/21 - 11/19/21 [facility] Attending Physician: AdmJuan R chapman Admitting Physician: Admtr, Ar8 Referring Physician: Admtr, Ar8 Allergies, Adverse Reactions, Alerts No Known Allergies [...] Replace Required Details, Route to Pharmacy Electronically, [facility]/pharmacy #2024, 1... Start Date: 10/20/21 Status: [...] 10/20/21 15:46:00 EST, Route to Pharmacy Electronically, [facility]/pharmacy #2025, 170, cm, 10/07/21 14:16:00 EST, [...]
--- OUTSIDE RECORDS SUMMARY | 2023-05-25 08:27 | XMS_ITS | Continuity of Care Document ---
Author Name Unknown Organization [facility] Address [address] [place], [place] [address]blanco spangler, [address] [place] [address]- Care Team Providers Care Television Script Writer Name Role Phone Harley CHA, Allie Guzman Primary Care Physician [place] [facility] [place] 10/24/22 - 11/23/22 [facility] [address] [place] [address] Drive, [address] [place], [place] [address] Allergies, Adverse Reactions, Alerts No Known Allergies [...] Replace Required Details, Route to Pharmacy Electronically, [facility]/pharmacy #2024, 1... Start Date: 02/16/22 Status: Ordered [...] opioid drug. Start Date: 11/22/22 Status: Ordered oxybutynin 5 mg/24 hours oral [...] tablet, Refills 5, Route to Pharmacy Electronically, [facility], 170, cm, 04/03/22 8:23:00 EDT, Height, 70.4, [...] Team Personnel Name: Lorraine CHRISTIAN, Bryn Position: [facility] Member Role: Primary Care Nurse Name: Jose Roberto Barakat RN Position: [facility] RN Member Role: Primary Care Nurse Name: Faustina Jarrell RN Position: [facility] RN Member Role: Primary Care Nurse Name: Katya Moore RN Position: [facility] RN Member Role: Primary Care Nurse Name: Meir Lange RN Position: [facility] RN Member Role: Primary Care Nurse Name: Charley Gamble RN Position: [facility] RN Member Role: Primary Care Nurse Name: Allie Souza MD Position: [facility] Outreach Member Role: PCP Address: Address: [address] [place] [id number] Name: Key Dewitt RN Position: [facility] RN Member Role: Primary Care Nurse Care Team Related Persons Name: AIDEN GARCÍA Address: [place] [address] [place] [address]
--- OUTSIDE RECORDS SUMMARY | 2023-05-25 08:28 | XMS_ITS | Continuity of Care Document ---
Author Name Unknown Organization [facility] Address [address] [place], [place] [address]blanco spangler, [address] [place] [address]- Care Team Providers Care Paperback Machine Operator Name Role Phone Harley CHA, Allie Guzman Primary Care Physician [place] [facility] [place] Date(s): 07/08/21 - 08/07/21 [facility] [address] [place] [address] Drive, [address] [place], [place] [address] Allergies, Adverse Reactions, Alerts Substance Reaction Severity [...]
--- OUTSIDE RECORDS SUMMARY | 2023-05-25 08:28 | XMS_ITS | Continuity of Care Document ---
Author Name Unknown Organization [facility]icine [facility] Rehabilitation Address [address] [place] [address]- Care Team Providers Care Central Service Supply Distributor Name Role Phone Harley CHA, Allie Guzman Primary Care Physician [phone] [facility] [place] - 10/26/22 [facility] [address] [place] [address]- Allergies, Adverse Reactions, Alerts No Known Allergies [...] Replace Required Details, Route to Pharmacy Electronically, [facility]/pharmacy #2024, 1... Start Date: 02/16/22 [...] tablet, Refills 5, Route to Pharmacy Electronically, [facility], 170, cm, 04/03/22 8:23:00 EDT, Height, 70.4, [...] Nurse Name: Jose Roberto Barakat RN Position: [facility] RN Member Role: Primary Care Nurse Name: Faustina Jarrell RN Position: [facility] RN Member Role: Primary Care Nurse Name: Katya Moore RN Position: [facility] RN Member Role: Primary Care Nurse Name: Meir Lange RN Position: [facility] RN Member Role: Primary Care Nurse Name: Charley Gamble RN Position: [facility] RN Member Role: Primary Care Nurse Name: Allie Souza MD Position: [facility] Outreach Member Role: PCP Address: Address: [address] [place] [id number] Name: Key Dewitt RN Position: [facility] RN Member Role: Primary Care Nurse Care Team Related Persons Name: ERINMYALauryn AIDEN Address: [address] [address]
--- OUTSIDE RECORDS SUMMARY | 2023-05-25 08:28 | XMS_ITS | Continuity of Care Document ---
Author Name Unknown Organization [facility] Address [address] [place], [place] [address]blanco spangler, [address] [place] [address]- Care Team Providers Care On Air Talent Name Role Phone Harley CHA, Allie Guzman Primary Care Physician [place] [facility] [place] 08/04/21 - 08/11/21 [facility] [address] [place] [address] Drive, [address] [place], [place] [address] Attending Physician: Nina Lyn MD Allergies, Adverse [...]
--- OUTSIDE RECORDS SUMMARY | 2023-05-25 08:28 | XMS_ITS | Continuity of Care Document ---
Author Name Unknown Organization [facility]icine and Rehabilitation Address [address] [place] [address]- Care Team Providers Care Relocation Coordinator Name Role Phone Harley CHA, Allie Guzman Primary Care Physician [phone] Encounter [facility] [place] Date(s): 11/20/22 - 12/20/22 [facility] [address] [place] [address]- Allergies, Adverse Reactions, Alerts No Known Allergies [...] Required Details, Route to Pharmacy Electronically, [facility]/pharmacy #2024, 1... Start Date: 12/15/22 Status: Ordered [...] 5 Refills, Maintenance, 12/19/22 13:48:00 EST, Tablet, [facility]/pharmacy #5, Partial fill upon patient request if [...] tablet, Refills 5, Route to Pharmacy Electronically, [facility], 170, cm, 04/03/22 8:23:00 EDT, Height, 70.4, [...] Care Nurse Name: Faustina Jarrell RN Position: [facility] RN Member Role: Primary Care Nurse Name: Katya Moore RN Position: [facility] RN Member Role: Primary Care Nurse Name: Meir Lange RN Position: [facility] RN Member Role: Primary Care Nurse Name: Charley Gamble RN Position: [facility] RN Member Role: Primary Care Nurse Name: Allie Souza MD Position: [facility] Outreach Member Role: PCP Address: Address: [address] [place] [address] Name: Key Dewitt RN Position: [facility] RN Member Role: Primary Care Nurse Care Team Related Persons Name: AIDEN GARCÍA Address: [address] [address]
--- OUTSIDE RECORDS SUMMARY | 2023-05-25 08:28 | XMS_ITS | Continuity of Care Document ---
Author Name Unknown Organization [facility]icine [facility] Rehabilitation Address Unknown Care Team Providers Care Reservoir Engineer Name Role Phone Allie Souza MD Primary Care Physician [phone] Encounter [facility] [place] Date(s): 04/17/22 - 05/17/22 [facility] Allergies, Adverse [...] Replace Required Details, Route to Pharmacy Electronically, [facility]/pharmacy #2024, 1... Start Date: 02/16/22 Status: Ordered [...] Replace Required Details, Route to Pharmacy Electronically, [facility]/pharmacy #2... Start Date: 03/14/22 Status: Ordered oxybutynin [...] 10/20/21 15:46:00 EST, Route to Pharmacy Electronically, [facility]/pharmacy #2025, 170, cm, 10/07/21 14:16:00 EST, Height, [...]
--- OUTSIDE RECORDS SUMMARY | 2023-05-25 08:28 | XMS_ITS | Continuity of Care Document ---
Author Name Unknown Organization [facility] Address Unknown Care Team Providers Care Transportation Refrigeration Technician Name Role Phone Harley CHA, Allie Guzman Primary Care Physician Encounter [facility] Date(s): 07/08/21 - 08/07/21 [facility] Referring Physician: Bethany Briones Allergies, Adverse Reactions, Alerts Substance Reaction Severity [...]
--- OUTSIDE RECORDS SUMMARY | 2023-05-25 08:28 | XMS_ITS | Continuity of Care Document ---
Author Name Unknown Organization [facility] Address [address] [place] [address] aníbal, [address] [place] [address]- Care Team Providers Care Support Services Manager Name Role Phone Harley CHA, Allie Guzman Primary Care Physician En[place] [facility] [place] Date(s): 08/04/21 - 09/03/21 [facility] [address] [place] [address] Drive, [address] [place] [address]- Attending Physician: Juan R He Admitting Physician: AdmtrJuan R Referring Physician: Admtr, [...]
--- OUTSIDE RECORDS SUMMARY | 2023-05-25 08:28 | XMS_ITS | Continuity of Care Document ---
Author Name Unknown Organization [facility] Address [address] [place], [place] [address]blanco spangler, [address] [place] [address]- Care Team Providers Care Network Control Operator Name Role Phone Harley CHA, Allie Guzman Primary Care Physician En[place] [facility] [id number] Date(s): 06/28/21 - 07/05/21 [facility] [address] [place] [address] Drive, [address] [place] [address]- Attending Physician: Riki CHA, Nina Florence Allergies, Adverse Reactions, Alerts Substance Reaction Severity [...]
--- OUTSIDE RECORDS SUMMARY | 2023-05-25 08:28 | XMS_ITS | Continuity of Care Document ---
Author Name Unknown Organization [facility]icine [facility] Rehabilitation Address Unknown Care Team Providers Care Boat Crew Deck Hand Name Role Phone Allie Souza MD Primary Care Physician [phone] En[place] [facility] [place] Date(s): 02/17/22 - 03/19/22 [facility] Allergies, Adverse [...] [facility]/pharmacy #2024, 1... Start Date: 02/16/22 Status: Ordered [...] Route to Pharmacy Electronically, [facility]/pharmacy #2... Start Date: 03/14/22 Status: Ordered oxybutynin [...] 10/20/21 15:46:00 EST, Route to Pharmacy Electronically, [facility]/pharmacy #2025, 170, cm, 10/07/21 14:16:00 EST, Height, [...]
--- OUTSIDE RECORDS SUMMARY | 2023-05-25 08:28 | XMS_ITS | Continuity of Care Document ---
Author Name Unknown Organization [facility] Address [address] [place] [address]- Care Team Providers Care Office Helper Clerical Name Role Phone Harley CHA, Allie Guzman Primary Care Physician Encounter [facility] [place] Date(s): 09/29/22 - 10/29/22 [facility] [address] [place] [address]- Allergies, Adverse Reactions, Alerts No Known Allergies [...] Replace Required Details, Route to Pharmacy Electronically, [facility]/pharmacy #2024, 1... Start Date: 02/16/22 Status: [...] tablet, Refills 5, Route to Pharmacy Electronically, [facility] 586[facility], 170, cm, 04/03/22 8:23:00 EDT, Height, 70.4, [...] Nurse Name: Jose Roberto Barakat RN Position: [facility] RN Member Role: Primary Care Nurse Name: Faustina Jarrell RN Position: [facility] RN Member Role: Primary Care Nurse Name: Katya Moore RN Position: [facility] RN Member Role: Primary Care Nurse Name: Meir Lange RN Position: [facility] RN Member Role: Primary Care Nurse Name: Charley Gamble RN Position: [facility] RN Member Role: Primary Care Nurse Name: Allie Souza MD Position: [facility] Outreach Member Role: PCP Address: Address: [address] [place] [id number] Name: Key Dewitt RN Position: [facility] RN Member Role: Primary Care Nurse Care Team Related Persons Name: ERINMYALauryn AIDEN Address: [address] [address]
--- OUTSIDE RECORDS SUMMARY | 2023-05-25 08:28 | XMS_ITS | Continuity of Care Document ---
Author Name Unknown Organization [facility] Physical [facility]icine [facility] Rehabilitation Address Unknown Care Team Providers Care Plant Engineer Name Role Phone Harley CHA, Allie Guzman Primary Care Physician [phone] Encounter [facility] [place] Date(s): 10/28/21 - 11/27/21 [facility] Allergies, Adverse Reactions, [...] Required Details, Route to Pharmacy Electronically, [facility]/pharmacy #2024, 1... Start Date: 10/20/21 Status: Ordered [...] 15:46:00 EST, Route to Pharmacy Electronically, [facility]/pharmacy #2025, 170, cm, 10/07/21 14:16:00 EST, Height, [...]
--- OUTSIDE RECORDS SUMMARY | 2023-05-25 08:28 | XMS_ITS | Continuity of Care Document ---
Author Name Unknown Organization [facility] Address [address] [place] [address]- Care Team Providers Care Animal Care Attendant Name Role Phone Harley CHA, Allie Guzman Primary Care Physician En[place] [facility] [place] Date(s): 10/04/22 - 11/03/22 [facility] [address] [place] [address]- Allergies, Adverse Reactions, Alerts No Known Allergies [...] Required Details, Route to Pharmacy Electronically, [facility]/pharmacy #2024, 1... Start Date: 02/16/22 [...] tablet, Refills 5, Route to Pharmacy Electronically, [facility], 170, cm, 04/03/22 8:23:00 EDT, Height, 70.4, [...] Nurse Name: Jose Roberto Barakat RN Position: [facility] RN Member Role: Primary Care Nurse Name: Faustina Jarrell RN Position: [facility] RN Member Role: Primary Care Nurse Name: Katya Moore RN Position: [facility] RN Member Role: Primary Care Nurse Name: Meir Lange RN Position: [facility] RN Member Role: Primary Care Nurse Name: Charley Gamble RN Position: [facility] RN Member Role: Primary Care Nurse Name: Allie Souza MD Position: [facility] Outreach Member Role: PCP Address: Address: [address] [place] [id number] Name: Key Dewitt RN Position: [facility] RN Member Role: Primary Care Nurse Care Team Related Persons Name: ERINMYALauryn AIDEN Address: [address] [address]
--- OUTSIDE RECORDS SUMMARY | 2023-05-25 08:28 | XMS_ITS | Continuity of Care Document ---
Author Name Unknown Organization [facility] Address [address] [place] [address], [address] Floor, [address] [place] [address]- Care Team Providers Care Pie Chef Name Role Phone Allie Souza MD Primary Care Physician Encounter [facility] [place] Date(s): 06/09/22 - 07/09/22 [facility] [address] [place], [address] Floor, [address] [place] [address]- [place] Allergies, Adverse Reactions, Alerts No Known [...] Details, Route to Pharmacy Electronically, [facility]/pharmacy #2024, 1... Start Date: 02/16/22 Status: Ordered [...] Details, Route to Pharmacy Electronically, [facility]/pharmacy #2... Start Date: 03/14/22 Status: Ordered oxybutynin [...] tablet, Refills 5, Route to Pharmacy Electronically, [facility] 26697, 170, cm, 04/03/22 8:23:00 EDT, Height, 70.4, [...] in household: No entered on: 03/27/14 Sex Care Team Personnel Name: Allie Souza MD Address: [address] [place], [place] [address], [place] [address]- [facility]
--- OUTSIDE RECORDS SUMMARY | 2023-05-25 08:28 | XMS_ITS | Continuity of Care Document ---
Author Name Unknown Organization [facility] Me dicine and Rehabilitation Address [address] [place] [address]- Care Team Providers Care Electrical/Instrument Technician Name Role Phone Allie Souza MD Primary Care Physician [facility] [place] Date(s): 08/14/22 - 09/13/22 [facility] Medicine [facility] Rehabilitation [address] [place] [address]- Allergies, Adverse Reactions, Alerts No Known Allergies [...] Replace Required Details, Route to Pharmacy Electronically, [facility]/pharmacy #2024, 1... Start Date: 02/16/22 [...] 0 Refills, Maintenance, 09/11/22 17:04:00 EST, Capsule, [facility]/pharmacy #2024, Partial fill upon patient request if [...] tablet, Refills 5, Route to Pharmacy Electronically, [facility] 279[facility], 170, cm, 04/03/22 8:23:00 EDT, Height, 70.4, [...] Care Nurse Name: Charley Gamble RN Position: [facility] RN Member Role: Primary Care Nurse Name: Allie Souza MD Position: S Outreach Member Role: PCP Address: Address: [address] [place] [address] Name: Key Dewitt RN Position: S RN Member Role: Primary Care Nurse Care Team Related Persons Name: AIDEN GARCÍA Address: [facility] [address] [place] [address]
--- OUTSIDE RECORDS SUMMARY | 2023-05-25 08:28 | XMS_ITS | Continuity of Care Document ---
Author Name Unknown Organization [facility] Address [address] [place] [address]- Care Team Providers Care Records Management Engineer Name Role Phone Harley CHA, Allie Guzman Primary Care Physician [phone] Encounter [facility] Date(s): 09/11/22 - 10/11/22 [facility] [address] [place] [address]- Allergies, Adverse Reactions, Alerts No Known Allergies [...] Replace Required Details, Route to Pharmacy Electronically, [facility]/pharmacy #2024, 1... Start Date: 02/16/22 Status: [...] tablet, Refills 5, Route to Pharmacy Electronically, [id number], 170, cm, 04/03/22 8:23:00 EDT, Height, 70.4, [...] Nurse Name: Jose Roberto Barakat RN Position: [facility] RN Member Role: Primary Care Nurse Name: Faustina Jarrell RN Position: [facility] RN Member Role: Primary Care Nurse Name: Katya Moore RN Position: [facility] RN Member Role: Primary Care Nurse Name: Meir Lange RN Position: [facility] RN Member Role: Primary Care Nurse Name: Charley Gamble RN Position: [facility] RN Member Role: Primary Care Nurse Name: Allie Souza MD Position: [facility] Outreach Member Role: PCP Address: Address: [address] [place] [id number] Name: Key Dewitt RN Position: [facility] RN Member Role: Primary Care Nurse Care Team Related Persons Name: ERINMYALauryn AIDEN Address: [address] [address]
--- OUTSIDE RECORDS SUMMARY | 2023-05-25 08:28 | XMS_ITS | Continuity of Care Document ---
Author Name Unknown Organization [facility] Address [address] [place] [address]- Care Team Providers Care Finger Cobbler Name Role Phone Harley CHA, Allie Guzman Primary Care Physician Encounter [facility] Date(s): 09/20/22 - 10/20/22 [facility] [address] [place] [address]- Allergies, Adverse Reactions, Alerts No Known Allergies [...] Required Details, Route to Pharmacy Electronically, [facility]/pharmacy #2024, 1... Start Date: 02/16/22 [...] tablet, Refills 5, Route to Pharmacy Electronically, [facility], 170, cm, 04/03/22 8:23:00 EDT, Height, 70.4, [...] Nurse Name: Jose Roberto Barakat RN Position: [facility] RN Member Role: Primary Care Nurse Name: Faustina Jarrell RN Position: [facility] RN Member Role: Primary Care Nurse Name: Kayta Moore RN Position: [facility] RN Member Role: Primary Care Nurse Name: Meir Lange RN Position: [facility] RN Member Role: Primary Care Nurse Name: Charley Gamble RN Position: [facility] RN Member Role: Primary Care Nurse Name: Allie Souza MD Position: [facility] Outreach Member Role: PCP Address: Address: [address] [place] [id number] Name: Key Dewitt RN Position: [facility] RN Member Role: Primary Care Nurse Care Team Related Persons Name: ERINMYALauryn AIDEN Address: [address] [address]
--- OUTSIDE RECORDS SUMMARY | 2023-05-25 08:28 | XMS_ITS | Continuity of Care Document ---
Author Name Unknown Organization [facility] Address Unknown Care Team Providers Care Tube Room Cashier Name Role Phone Allie Souza MD Primary Care Physician [phone] Encounter [facility] Date(s): 03/17/22 - 04/16/22 [facility] Allergies, Adverse [...] Replace Required Details, Route to Pharmacy Electronically, [facility]/pharmacy #2024, 1... Start Date: 02/16/22 Status: Ordered [...] Replace Required Details, Route to Pharmacy Electronically, [facility]/pharmacy #2... Start Date: 03/14/22 Status: Ordered oxybutynin [...] 10/20/21 15:46:00 EST, Route to Pharmacy Electronically, [facility]/pharmacy #2025, 170, cm, 10/07/21 14:16:00 EST, [...]
--- OUTSIDE RECORDS SUMMARY | 2023-05-25 08:28 | XMS_ITS | Continuity of Care Document ---
Author Name Unknown Organization [facility] Address Unknown Care Team Providers Care Leather Repairer Name Role Phone Harley CHA, Allie Guzman Primary Care Physician [phone] Encounter [facility] [place] Date(s): 10/20/21 - 11/19/21 [facility] Allergies, Adverse [...] Replace Required Details, Route to Pharmacy Electronically, [facility]/pharmacy #2024, 1... Start Date: 10/20/21 [...] 10/20/21 15:46:00 EST, Route to Pharmacy Electronically, [facility]/pharmacy #2025, 170, cm, 10/07/21 14:16:00 [...]
--- OUTSIDE RECORDS SUMMARY | 2023-05-25 08:28 | XMS_ITS | Continuity of Care Document ---
Author Name Unknown Organization [facility] Address [address] [place], [place] [address]blanco spangler, [address] [place] [address]- Care Team Providers Care Graphic Art Technician Name Role Phone Harley CHA, Allie Guzman Primary Care Physician [phone] [place] [facility] [place](s): 11/03/22 - 12/03/22 [facility] [address] [place] [address] Drive, [address] [place], [place] [address] Allergies, Adverse Reactions, Alerts No Known [...] Replace Required Details, Route to Pharmacy Electronically, [facility]/pharmacy #2024, 1... Start Date: [...] tablet, Refills 5, Route to Pharmacy Electronically, [facility], 170, cm, 04/03/22 8:23:00 EDT, Height, 70.4, [...] Care Nurse Name: Katya Moore RN Position: [facility] RN Member Role: Primary Care Nurse Name: Meir Lange RN Position: [facility] RN Member Role: Primary Care Nurse Name: Charley Gamble RN Position: [facility] RN Member Role: Primary Care Nurse Name: Allie Souza MD Position: S Outreach Member Role: PCP Address: Address: [address] [place] [address] Name: Key Dewitt RN Position: [facility] RN Member Role: Primary Care Nurse Care Team Related Persons Name: AIDEN GARCÍA Address: [address] [place] [address]
--- OUTSIDE RECORDS SUMMARY | 2023-05-25 08:28 | XMS_ITS | Continuity of Care Document ---
Author Name Unknown Organization [facility] Address [address] [place] [address], [address]t [address] [place] [address]- Care Team Providers Care Medical Delivery Technician Name Role Phone Harley CHA, Allie Guzman Primary Care Physician Encounter [facility] Date(s): 08/31/22 - 09/30/22 [facility] [address] [place] [address], [address]th [address] [place] [address]- Allergies, Adverse Reactions, Alerts No Known Allergies [...] 2 times a day, # 60 capsule, 5 Refills, Maintenance, 09/29/22 17:32:00 EST, Capsule, [facility]/pharmacy #2025, 170, cm, 08/09/22 9:41:00 EDT, Height, 70.4, kg, 07/15/21 10:52:00 EDT, Dry Weight Start Date: 09/29/22 Status: Ordered PriLOSEC OTC 20 mg oral [...] tablet, Refills 5, Route to Pharmacy Electronically, [facility], 170, cm, 04/03/22 8:23:00 EDT, Height, 70.4, [...] Care Nurse Name: Meir Lange RN Position: [facility] RN Member Role: Primary Care Nurse Name: Charley Gamble RN Position: S RN Member Role: Primary Care Nurse Name: Allie Souza MD Position: S Outreach Member Role: PCP Address: Address: [address] [place] [id number] Name: Key Dewitt RN Position: S RN Member Role: Primary Care Nurse Care Team Related Persons Name: AIDEN GARCÍA Address: home [address] [place] [address]
--- OUTSIDE RECORDS SUMMARY | 2023-05-25 08:28 | XMS_ITS | Continuity of Care Document ---
Author Name Unknown Organization [facility] Address Unknown Care Team Providers Care Repair Table Operator Name Role Phone Harlye CHA, Allie Guzman Primary Care Physician [phone] En[place] [facility] Date(s): 07/20/21 - 07/27/21 [facility] Attending Physician: Nehemiah CHA, Albert Castillo Allergies, Adverse Reactions, Alerts Substance Reaction Severity [...]
--- OUTSIDE RECORDS SUMMARY | 2023-05-25 08:28 | XMS_ITS | Continuity of Care Document ---
Author Name Unknown Organization [facility] Address [address] [place] [address]- Care Team Providers Care Metal Products Viewer Name Role Phone Harley CHA, Allie Guzman Primary Care Physician [phone] En[place] [facility] Date(s): 12/05/22 - 03/28/23 [facility] [address] [place] [address]- Attending Physician: Manoj Price MD Allergies, Adverse Reactions, Alerts No Known [...] [facility]/pharmacy #2024, 1... Start Date: 12/15/22 Status: Ordered [...] 5 Refills, Maintenance, 12/19/22 13:48:00 EST, Tablet, [facility]/pharmacy #5, Partial fill upon patient request if [...] 5, 01/04/23 11:46:00 EDT,Route to Pharmacy Electronically, [facility]/pharmacy #2025, 170, cm, 01/04/23 11:17:00 EDT, Height, [...] Team Personnel Name: Bryn Peters RN Position: [facility] RN Member Role: Primary Care Nurse Name: Jose Roberto Barakat RN Position: S RN Member Role: Primary Care Nurse Name: Faustina Jarrell RN Position: [facility] RN Member Role: Primary Care Nurse Name: Katya Moore RN Position: [facility] RN Member Role: Primary Care Nurse Name: Meir Lange RN Position: [facility] RN Member Role: Primary Care Nurse Name: Charley Gamble RN Position: [facility] RN Member Role: Primary Care Nurse Name: Allie Souza MD Position: [facility] Outreach Member Role: PCP Address: Address: [address] [place] [id number] Name: Key Dewitt RN Position: [facility] RN Member Role: Primary Care Nurse Care Team Related Persons Name: AIDEN GARCÍA Address: home [facility] [address] [place] [address]
--- OUTSIDE RECORDS SUMMARY | 2023-05-25 08:28 | XMS_ITS | Continuity of Care Document ---
Author Name Unknown Organization [facility] Address [address] [place] [address]- Care Team Providers Care Technical Research Scientist Name Role Phone Allie Souza MD Primary Care Physician En[place] [facility] Date(s): 10/07/21 - 11/06/21 [facility] [address] [place] [address]- Attending Physician: Juan R He Admitting Physician: [...] Replace Required Details, Route to Pharmacy Electronically, [facility]/pharmacy #2024, 1... Start Date: 10/20/21 Status: Ordered [...] 10/20/21 15:46:00 EST, Route to Pharmacy Electronically, [facility]/pharmacy #2025, 170, cm, 10/07/21 14:16:00 EST, Height, [...]
--- OUTSIDE RECORDS SUMMARY | 2023-05-25 08:28 | XMS_ITS | Continuity of Care Document ---
Author Name Unknown Organization [facility] Address Unknown Care Team Providers Care Youth Support Worker Name Role Phone Harley CHA, Allie Guzman Primary Care Physician [place] [facility] [place] 04/03/22 - 04/10/22 [facility] Attending Physician: Albert CHA, Manoj Domínguez Allergies, Adverse Reactions, Alerts No Known Allergies [...] Replace Required Details, Route to Pharmacy Electronically, [facility]/pharmacy #2024, 1... Start Date: 02/16/22 Status: [...] Replace Required Details, Route to Pharmacy Electronically, [facility]/pharmacy #2... Start Date: 03/14/22 Status: Ordered [...] 10/20/21 15:46:00 EST, Route to Pharmacy Electronically, [facility]/pharmacy #2025, 170, cm, 10/07/21 14:16:00 EST, [...] oldest [Reference Range]: 1 Height 170 cm (04/03/22 8:23 AM) Oxygen Saturation [94-100 %] 100 % (04/03/22 8:23 AM) Pulse Rate [55-90 bpm] 83 bpm (04/03/22 8:23 AM) Blood Pressure [90-138/55-84 mm Hg] 127/ 87mm Hg (04/03/22 8:23 AM) Mode of Delivery (Oxygen) Room air (04/03/22 8:23 AM) Blood pressure sites Arm, right (04/03/22 8:23 AM) Social History Social History Type Response Smoking Status Former smoker; Tobac co user in household: No entered on: 03/27/14 Sex
--- OUTSIDE RECORDS SUMMARY | 2023-05-25 08:28 | XMS_ITS | Continuity of Care Document ---
Author Name Unknown Organization [facility] Address [address] [place] [address]- Care Team Providers Care Security Control Center Operator Name Role Phone Allie Souza MD Primary Care Physician [phone] Encounter [facility] Date(s): 01/08/23 - 02/07/23 [facility] [address] [place] [address]- Allergies, Adverse Reactions, Alerts No Known Allergies [...] Replace Required Details, Route to Pharmacy Electronically, [facility]/pharmacy #2024, 1... Start Date: 12/15/22 Status: [...] 5 Refills, Maintenance, 12/19/22 13:48:00 EST, Tablet, [facility]/pharmacy #2024, Partial fill upon patient request [...] 5, 01/04/23 11:46:00 EDT,Route to Pharmacy Electronically, [facility]/pharmacy #2025, 170, cm, 01/04/23 11:17:00 EDT, [...] Care Nurse Name: Faustina Jarrell RN Position: [facility] RN Member Role: Primary Care Nurse Name: Katya Moore RN Position: [facility] RN Member Role: Primary Care Nurse Name: Meir Lange RN Position: [facility] RN Member Role: Primary Care Nurse Name: Charley Gamble RN Position: [facility] RN Member Role: Primary Care Nurse Name: Allie Souza MD Position: [facility] Outreach Member Role: PCP Address: Address: [address] [place] [id number] Name: Key Dewitt RN Position: [facility] RN Member Role: Primary Care Nurse Care Team Related Persons Name: AIDEN GARCÍA Address: home [address] [place] [address]
--- OUTSIDE RECORDS SUMMARY | 2023-05-25 08:28 | XMS_ITS | Continuity of Care Document ---
Author Name Unknown Organization [facility] Address Unknown Care Team Providers Care Facility Examiner Name Role Phone Harley CHA, Allie Guzman Primary Care Physician Encounter [facility] [id number] Date(s): 09/12/21 - 10/12/21 [facility] Referring Physician: Bethany [...]
--- OUTSIDE RECORDS SUMMARY | 2023-05-25 08:28 | XMS_ITS | Continuity of Care Document ---
Author Name Unknown Organization [facility] Address [address] [place] [address]- Care Team Providers Care Chemical Plant Technical Director Name Role Phone Harley CHA, Allie Guzman Primary Care Physician En[place] [facility] Date(s): 11/16/22 - 12/16/22 [facility] [address] [place] [address]- Allergies, Adverse Reactions, Alerts No Known Allergies [...] Replace Required Details, Route to Pharmacy Electronically, [facility]/pharmacy #2024, 1... Start Date: 12/15/22 Status: Ordered [...] tablet, Refills 5, Route to Pharmacy Electronically, [facility], 170, cm, 04/03/22 8:23:00 EDT, Height, 70.4, [...] Care Nurse Name: Katya Moore RN Position: [facility] RN Member Role: Primary Care Nurse Name: Meir Lange RN Position: [facility] RN Member Role: Primary Care Nurse Name: Charley Gamble RN Position: [facility] RN Member Role: Primary Care Nurse Name: Allie Souza MD Position: [facility] Outreach Member Role: PCP Address: Address: [address] [place] [id number] Name: Key Dewitt RN Position: [facility] RN Member Role: Primary Care Nurse Care Team Related Persons Name: AIDEN GARCÍA Address: [facility] [address] [place] [address]
--- OUTSIDE RECORDS SUMMARY | 2023-05-25 08:28 | XMS_ITS | Continuity of Care Document ---
Author Name Unknown Organization [facility] Address [address] [place] [address]- Care Team Providers Care Swift Tender Name Role Phone Allie Souza MD Primary Care Physician [phone] Encounter [facility] Date(s): 07/11/22 - 08/13/22 [facility] [address] [place] [address]- Attending Physician: Augustine Brennan MD Referring Physician: Allie Souza MD Allergies, [...] Required Details, Route to Pharmacy Electronically, [facility]/pharmacy #2024, 1... Start Date: 02/16/22 Status: Ordered [...] Refills, Maintenance, 07/20/22 14:46:00 EDT, EC Capsule, [facility][id number], 170, cm, 07/20/22 14:03:00... Start Date: 07/20/22 Status: Ordered gabapentin 300 mg oral capsule See Instructions, 3 capsules by Mouth in the morning & 4 capsules afternoon & night., # 330capsule, Refills 4, Tot. Refills 4, Maintenance, 03/14/22 8:50:00 EDT, Instructions Replace Required Details, Route to Pharmacy Electronically, [facility]/pharmacy #2... Start Date: 03/14/22 Status: Ordered oxybutynin [...] tablet, Refills 5, Route to Pharmacy Electronically, [facility], 170, cm, 04/03/22 8:23:00 EDT, Height, 70.4, [...] Sex Patient Care team information Personnel Name: Allie Souza MD Address: Address: [address] [place] [address]
--- OUTSIDE RECORDS SUMMARY | 2023-05-25 08:28 | XMS_ITS | Continuity of Care Document ---
Author Name Unknown Organization [facility] Address [address] [place] [address] [address], [address] [place] [address]- Care Team Providers Care Online Merchandising Manager Name Role Phone Harley CHA, Allie Guzman Primary Care Physician Encounter [facility] [place] Date(s): 04/21/21 - 06/02/21 [facility] [address] [place] [address] Drive, [address] [place] [address]- Attending Physician: Riki CHA, Nina Florence Allergies, [...]
--- OUTSIDE RECORDS SUMMARY | 2023-05-25 08:28 | XMS_ITS | Continuity of Care Document ---
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) - 07/13/21 Neurogenic bowel(Discharge Diagnosis) - 07/13/21 Attending Physician: Nehemiah CHA, Albert Castillo Referring Physician: Bethany Briones Allergies, Adverse Reactions, [...] pain(Confirmed) Active Spasticity(Confirmed) Active Chronic tetraplegia(Confirmed) Active Diagnosis Diagnosis Type Effective Dates Health Status Clinical Service Informant Chronic tetraplegia Discharge Diagnosis 07/13/21 Spasticity Discharge Diagnosis 07/13/21 Neuropathic pain Discharge Diagnosis 07/13/21 Neurogenic bladder due to quadriplegia Discharge Diagnosis 07/13/21 Neurogenic bowel Discharge Diagnosis 07/13/21 Social History Social History Type Response Smoking Status Former smoker; Tobac co user in household: No entered on: 03/27/14 Sex
--- OUTSIDE RECORDS SUMMARY | 2023-05-25 08:28 | XMS_ITS | Continuity of Care Document ---
Author Name Unknown Organization [facility]icine [facility] Rehabilitation Address Unknown Care Team Providers Care Tree Fruit And Nut Crops Farmer Name Role Phone Allie Souza MD Primary Care Physician [phone] Encounter [facility] Date(s): 07/20/21 - 08/19/21 [facility] [...]
--- OUTSIDE RECORDS SUMMARY | 2023-05-25 08:28 | XMS_ITS | Continuity of Care Document ---
Author Name Unknown Organization [facility]icine [facility] Rehabilitation Address Unknown Care Team Providers Care Transfer And Line Up Worker Name Role Phone Harley CHA, Allie Guzman Primary Care Physician Encounter [facility] Date(s): 11/11/21 - 12/11/21 [facility] Allergies, Adverse [...] Replace Required Details, Route to Pharmacy Electronically, [facility]/pharmacy #2024, 1... Start Date: 10/20/21 Status: [...] 10/20/21 15:46:00 EST, Route to Pharmacy Electronically, [facility]/pharmacy #2025, 170, cm, 10/07/21 14:16:00 EST, [...]
--- OUTSIDE RECORDS SUMMARY | 2023-05-25 08:29 | XMS_ITS | Continuity of Care Document ---
Author Name Unknown Organization [facility] Address [address] [place] [address] aníbal, [address] [place] [address]- Care Team Providers Care Roofer Metal Name Role Phone Harley CHA, Allie Guzman Primary Care Physician Encounter [facility] Date(s): 08/01/21 - 08/31/21 [facility] [address] [place] [address] Drive, [address] [place] [address]- Allergies, Adverse Reactions, Alerts Substance Reaction Severity [...]
--- OUTSIDE RECORDS SUMMARY | 2023-05-25 08:29 | XMS_ITS | Continuity of Care Document ---
Author Name Unknown Organization [facility] dicine and Rehabilitation Address [address] [place] [address]- Care Team Providers Care Cash Management Clerk Name Role Phone Harley CHA, Allie Guzman Primary Care Physician [place] [facility] [place] 09/11/22 - 10/11/22 [facility] Rehabilitation [address] [place] [address]- Allergies, Adverse Reactions, Alerts No Known Allergies [...] tablet, Refills 5, Route to Pharmacy Electronically, [facility], 170, cm, 04/03/22 8:23:00 EDT, Height, 70.4, [...] Nurse Name: Jose Roberto Barakat RN Position: [facility] RN Member Role: Primary Care Nurse Name: Faustina Jarrell RN Position: [facility] RN Member Role: Primary Care Nurse Name: Katya Moore RN Position: [facility] RN Member Role: Primary Care Nurse Name: Meir Lange RN Position: [facility] RN Member Role: Primary Care Nurse Name: Charley Gamble RN Position: [facility] RN Member Role: Primary Care Nurse Name: Allie Souza MD Position: [facility] Outreach Member Role: PCP Address: Address: [address] [place] [id number] Name: Key Dewitt RN Position: [facility] RN Member Role: Primary Care Nurse Care Team Related Persons Name: ERINMYALauryn AIDEN Address: [address] [address]
--- OUTSIDE RECORDS SUMMARY | 2023-05-25 08:29 | XMS_ITS | Continuity of Care Document ---
Author Name Unknown Organization [facility] Address [address] [place], [place] [address]blanco spangler, [address] [place] [address]- Care Team Providers Care Hazardous Material Specialist Name Role Phone Harley CHA, Allie Guzman Primary Care Physician Encounter [facility] Date(s): 11/13/22 - 12/13/22 [facility] [address] [place] [address] Drive, [address] [place], [place] [address] Allergies, Adverse Reactions, Alerts No Known Allergies [...] Replace Required Details, Route to Pharmacy Electronically, [facility]/pharmacy #[id number], 1... Start Date: 02/16/22 [...] tablet, Refills 5, Route to Pharmacy Electronically, [id number], 170, cm, 04/03/22 8:23:00 EDT, Height, 70.4, [...] Care Nurse Name: Katya Moore RN Position: [facility] RN Member Role: Primary Care Nurse Name: Meir Lange RN Position: [facility] RN Member Role: Primary Care Nurse Name: Charley Gamble RN Position: [facility] RN Member Role: Primary Care Nurse Name: Allie Souza MD Position: S Outreach Member Role: PCP Address: Address: [address] [place] [address] Name: Key Dewitt RN Position: [facility] RN Member Role: Primary Care Nurse Care Team Related Persons Name: AIDEN GARCÍA Address: [place] [address] [place] [address]
--- OUTSIDE RECORDS SUMMARY | 2023-05-25 08:29 | XMS_ITS | Continuity of Care Document ---
Author Name Unknown Organization [facility]icine [facility] Rehabilitation Address Unknown Care Team Providers Care Prism Measurer Name Role Phone Harley CHA, Allie Guzman Primary Care Physician [phone] Encounter [facility] [place] Date(s): 09/23/21 - 09/30/21 [facility] Physical Medicine and Rehabilitation Encounter Diagnosis Therapeutic drug monitoring(Discharge Diagnosis) - 09/24/21 Spasticity(Discharge Diagnosis) - 09/24/21 Quadriplegia, C1-C4 incomplete(Discharge Diagnosis) - 09/24/21 Attending Physician: Albert Cerna MD Referring Physician: [...] monitoring(Confirmed) Active Spasticity(Confirmed) Active Chronic tetraplegia(Confirmed) Active Diagnosis Diagnosis Type Effective Dates Health Status Clinical Service Informant Spasticity Discharge Diagnosis 09/24/21 Therapeutic drug monitoring Discharge Diagnosis 09/24/21 Quadriplegia, C1-C4 incomplete Discharge Diagnosis 09/24/21 Social History Social History Type Response Smoking Status Former smoker; Tobac co user in household: No entered on: 03/27/14 Sex
--- OUTSIDE RECORDS SUMMARY | 2023-05-25 08:29 | XMS_ITS | Continuity of Care Document ---
Author Name Unknown Organization [facility] Me [facility]icine and Rehabilitation Address Unknown Care Team Providers Care Regional Planner Name Role Phone Allie Souza MD Primary Care Physician [phone] Encounter [facility] [place] [facility] [id number] Date(s): 12/22/21 - 01/21/22 [facility] Medicine and Rehabilitation Attending Physician: Juan R He Admitting Physician: AdmJuan R chapman Referring Physician: AdmtrJuan R Allergies, Adverse Reactions, Alerts No Known [...] Required Details, Route to Pharmacy Electronically, [facility]/pharmacy #2024, 1... Start Date: 10/20/21 Status: Ordered [...] 10/20/21 15:46:00 EST, Route to Pharmacy Electronically, [facility]/pharmacy #[id number], 170, cm, 10/07/21 14:16:00 EST, Height, [...]
--- OUTSIDE RECORDS SUMMARY | 2023-05-25 08:29 | XMS_ITS | Continuity of Care Document ---
Author Name Unknown Organization [facility] Address [address] [place] [address] [address], [address] [place] [address]- Care Team Providers Care Zone Maintenance Technician Name Role Phone Harley CHA, Allie Guzman Primary Care Physician Encounter [facility] Date(s): 05/02/21 - 06/23/21 [facility] [address] [place] [address] Drive, [address] [place] [address]- Attending Physician: Riki CHA, Nina Florence Allergies, [...]
--- OUTSIDE RECORDS SUMMARY | 2023-05-25 08:29 | XMS_ITS | Continuity of Care Document ---
Author Name Unknown Organization [facility] Address [address] [place] [address] an[address], [address] [place] [address]- Care Team Providers Care Food Order Delivery Runner Name Role Phone Harley CHA, Allie Guzman Primary Care Physician [phone] Encounter [facility] Date(s): 05/24/21 - 06/23/21 [facility] [address] [place] [address] Drive, [address] [place] [address]- Allergies, Adverse Reactions, Alerts Substance Reaction Severity [...]
--- OUTSIDE RECORDS SUMMARY | 2023-05-25 08:29 | XMS_ITS | Continuity of Care Document ---
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) - 08/12/21 Neuropathic pain(Discharge Diagnosis) - 08/12/21 Spasticity(Discharge Diagnosis) - 08/12/21 Therapeutic drug monitoring(Discharge Diagnosis) - 08/15/21 Attending Physician: Albert Cerna MD Referring Physician: [...] Clinical Service Informant Chronic tetraplegia Discharge Diagnosis 08/12/21 Neurogenic bowel Discharge Diagnosis 08/12/21 Neurogenic bladder due to quadriplegia Discharge Diagnosis 08/12/21 Neuropathic pain Discharge Diagnosis 08/12/21 Spasticity Discharge Diagnosis 08/12/21 Therapeutic drug monitoring Discharge Diagnosis 08/15/21 Vital Signs Most recent to oldest [Reference Range]: 1 Height 170 cm (08/11/21 3:52 PM) Oxygen Saturation [94-100 %] 98 % (08/11/21 3:52 PM) Pulse Rate [55-90 bpm] 64 bpm (08/11/21 3:52 PM) Blood Pressure [90-138/55-84 mm Hg] 106/ 70mm Hg (08/11/21 3:52 PM) Temperature [96.8-100.4 DegF] 96.3 DegF *L* (08/11/21 3:52 PM) Blood pressure sites Arm, left (08/11/21 3:52 PM) Temperature Route Temporal (08/11/21 3:52 PM) Social History Social History Type Response Smoking Status Former smoker; Tobac co user in household: No entered on: 03/27/14 Sex
--- OUTSIDE RECORDS SUMMARY | 2023-05-25 08:29 | XMS_ITS | Continuity of Care Document ---
Author Name Unknown Organization [facility] Physical Me dicine and Rehabilitation Address Unknown Care Team Providers Care Huller Operator Name Role Phone Harley CHA, Allie Guzman Primary Care Physician [phone] [facility] Date(s): 10/18/21 - 11/17/21 [facility] Allergies, Adverse [...]
--- OUTSIDE RECORDS SUMMARY | 2023-05-25 08:29 | XMS_ITS | Continuity of Care Document ---
Author Name Unknown Organization [facility] Physical Nd dicine and Rehabilitation Address [address] [place] [address]- Care Team Providers Care Outside Sales Engineer Name Role Phone Allie Souza MD Primary Care Physician [phone] [place] [facility] [place] Date(s[place] 08/09/22 - 08/16/22 [facility] Physical Medicine and Rehabilitation [address] [place] [address]- Attending Physician: Augustine Brennan MD Referring Physician: [...] Refills, Maintenance, 07/20/22 14:46:00 EDT, EC Capsule, [id number], 170, cm, 07/20/22 14:03:00... Start Date: 07/20/22 Status: Ordered gabapentin 300 mg oral capsule See Instructions, 3 capsules by Mouth in the morning & 4 capsules afternoon & night., # 330capsule, Refills 4, Tot. Refills 4, Maintenance, 08/16/22 7:53:00 EDT, Instructions Replace Required Details, Route to Pharmacy Electronically, [facility]/pharmacy #2... Start Date: 08/16/22 Status: Ordered oxybutynin 5 mg/24 hours oral [...] tablet, Refills 5, Route to Pharmacy Electronically, [id number], 170, cm, 04/03/22 8:23:00 EDT, Height, 70.4, [...] oldest [Reference Range]: 1 Height 170 cm (08/09/22 9:41 AM) Oxygen Saturation [94-100 %] 98 % (08/09/22 9:41 AM) Pulse Rate [55-90 bpm] 67 bpm (08/09/22 9:41 AM) Blood Pressure [90-138/55-84 mm Hg] 120/ 73mm Hg (08/09/22 9:41 AM) Mode of Delivery (Oxygen) Room air (08/09/22 9:41 AM) Blood pressure sites Arm, right (08/09/22 9:41 AM) Social History Social History Type Response Smoking Status Former smoker; Tobac co user in household: No entered on: 03/27/14 Sex Patient Care team information Personnel Name: Allie Souza MD Address: Address: [address] [place] [id number]
--- OUTSIDE RECORDS SUMMARY | 2023-05-25 08:29 | XMS_ITS | Continuity of Care Document ---
Author Name Unknown Organization [facility] Address [address] [place] [address] an[address]bal, [address] [place] [address]- Care Team Providers Care Agriculture Teacher Name Role Phone Harley CHA, Allie Guzman Primary Care Physician [phone] Encounter [facility] Date(s): 05/26/21 - 06/02/21 [facility] [address] [place] [address] Drive, [address] [place] [address]- Attending Physician: Rkii CHA, Nina Florence Allergies, Adverse Reactions, Alerts [...] Health Status Inform ant Abstinent alcoholic(Confirmed) Active Vital Signs Most recent to oldest [Reference Range]: 1 Height 168 cm (05/26/21 12:17 PM) Weight 69.0 kg (05/26/21 12:17 PM) Body Mass Index [18.5-24.99] 24.45 (05/26/21 12:17 PM) Social History Social History Type Response Smoking Status Former smoker; Tobac co user in household: No entered on: 03/27/14 Sex
--- OUTSIDE RECORDS SUMMARY | 2023-05-25 08:29 | XMS_ITS | Continuity of Care Document ---
Author Name Unknown Organization [facility] Address [address] [place] [address]- Care Team Providers Care Fruit Checker Name Role Phone Allie Souza MD Primary Care Physician [id number] Date(s): 08/30/22 - 09/06/22 [facility] [address] [place] [address]- Attending Physician: Albert Cerna MD Referring Physician: [...] Required Details, Route to Pharmacy Electronically, [facility]/pharmacy #2024, 1... Start Date: 02/16/22 [...] Required Details, Route to Pharmacy Electronically, [facility]/pharmacy #2... Start Date: 08/16/22 Status: Ordered oxybutynin 5 mg/24 hours oral tablet, extended release 1 tablet = 5 mg, By Mouth, Daily at bedtime, # 30 tablet, 0 Refills, Maintenance, 08/11/21 15:56:00EDT, ER Tablet, Partial fill upon patient request if the prescription is for a schedule II opioid drug. Start Date: 08/11/21 Status: Ordered pregabalin 75 mg oral capsule See Instructions, 1 capsule By Mouth 2 times a day for 1 week then 2 capsules 2 times per day. Decrease gabapentin to 600 mg tid for 1 week as directed then stop gabapentin., # 60 capsule, 0 Refills,Maintenance, 08/30/22 16:27:00 EST, [facility] Start Date: 08/30/22 Status: Ordered PriLOSEC OTC 20 mg oral [...] tablet, Refills 5, Route to Pharmacy Electronically, [facility], 170, cm, 04/03/22 8:23:00 EDT, Height, 70.4, [...] Team Personnel Name: Bryn Peters RN Position: [facility] RN Member Role: Primary Care Nurse Name: Jose Roberto Barakat RN Position: [facility] RN Member Role: Primary Care Nurse Name: Faustina Jarrell RN Position: [facility] RN Member Role: Primary Care Nurse Name: Katya Moore RN Position: [facility] RN Member Role: Primary Care Nurse Name: Meir Lange RN Position: [facility] RN Member Role: Primary Care Nurse Name: Charley Gamble RN Position: [facility] RN Member Role: Primary Care Nurse Name: Allie Souza MD Position: S Outreach Member Role: PCP Address: Address: [address] [place] [address]- Name: Key Dewitt RN Position: [facility] RN Member Role: Primary Care Nurse Care Team Related Persons Name: AIDEN GARCÍA Address: [address] [address]
--- OUTSIDE RECORDS SUMMARY | 2023-05-25 08:29 | XMS_ITS | Continuity of Care Document ---
Author Name Unknown Organization [facility] Me dicine and Rehabilitation Address Unknown Care Team Providers Care Vegetable Loader Name Role Phone Harley CHA, Allie Guzman Primary Care Physician [phone] Encounter [facility] Date(s): 10/20/21 - 10/27/21 [facility] Medicine [facility] Rehabilitation Attending Physician: Nehemiah CHA, Albert Castillo Referring Physician: Allie Souza MD Allergies, Adverse [...] Replace Required Details, Route to Pharmacy Electronically, [facility]/pharmacy #2024, 1... Start Date: 10/20/21 [...] 10/20/21 15:46:00 EST, Route to Pharmacy Electronically, [facility]/pharmacy #2025, 170, cm, 10/07/21 14:16:00 [...]
--- OUTSIDE RECORDS SUMMARY | 2023-05-25 08:29 | XMS_ITS | Continuity of Care Document ---
Author Name Unknown Organization [facility] Physical Me dicine and Rehabilitation Address [address] [place] [address]- Care Team Providers Care Ladle Handler Name Role Phone Allie Souza MD Primary Care Physician [phone] [place] [facility] [place](s): 12/19/22 - 01/18/23 [facility] Physical Medicine and Rehabilitation [address] [place] [address]- Allergies, Adverse Reactions, Alerts No Known Allergies [...] Replace Required Details, Route to Pharmacy Electronically, [facility]/pharmacy #2024, 1... Start Date: 12/15/22 Status: [...] 5 Refills, Maintenance, 12/19/22 13:48:00 EST, Tablet, [facility]/pharmacy #2024, Partial fill upon patient request [...] 5, 01/04/23 11:46:00 EDT,Route to Pharmacy Electronically, [facility]/pharmacy #2025, 170, cm, 01/04/23 11:17:00 EDT, [...] Care Nurse Name: Faustina Jarrell RN Position: [facility] RN Member Role: Primary Care Nurse Name: Katya Moore RN Position: [facility] RN Member Role: Primary Care Nurse Name: Meir Lange RN Position: [facility] RN Member Role: Primary Care Nurse Name: Charley Gamble RN Position: [facility] RN Member Role: Primary Care Nurse Name: Allie Souza MD Position: [facility] Outreach Member Role: PCP Address: Address: [address] [place] [id number] Name: Key Dewitt RN Position: [facility] RN Member Role: Primary Care Nurse Care Team Related Persons Name: AIDEN GARCÍA Address: home [address] [place] [address]
--- OUTSIDE RECORDS SUMMARY | 2023-05-25 08:29 | XMS_ITS | Continuity of Care Document ---
Author Name Unknown Organization [facility] Address [address] [place] [address] [address], [address] [place] [address]- Care Team Providers Care Managed Services Consultant Name Role Phone Harley CHA, Allie Guzman Primary Care Physician Encounter [facility] Date(s): 05/25/21 - 06/24/21 [facility] [address] [place] [address] Drive, [address] [place] [address]- Allergies, Adverse Reactions, Alerts Substance Reaction Severity [...]
--- OUTSIDE RECORDS SUMMARY | 2023-05-25 08:29 | XMS_ITS | Continuity of Care Document ---
Author Name Unknown Organization [facility] Physical Me dicine and Rehabilitation Address [address] [place] [address]- Care Team Providers Care Parquetry Layer Name Role Phone Allie Souaz MD Primary Care Physician [place] [facility] 12[place]13[place]22 - 01/12/23 [facility] Physical Medicine and Rehabilitation [address] [place] [address]- Allergies, Adverse Reactions, Alerts No Known Allergies [...] [facility], 1... Start Date: 12/15/22 [...] 5 Refills, Maintenance, 12/19/22 13:48:00 EST, Tablet, [facility]/pharmacy #2024, Partial fill upon patient [...] 5, 01/04/23 11:46:00 EDT,Route to Pharmacy Electronically, [facility]/pharmacy #2025, 170, cm, 01/04/23 11:17:00 [...] Care Nurse Name: Faustina Jarrell RN Position: [facility] RN Member Role: Primary Care Nurse Name: Katya Moore RN Position: [facility] RN Member Role: Primary Care Nurse Name: Meir Lange RN Position: [facility] RN Member Role: Primary Care Nurse Name: Charley Gamble RN Position: [facility] RN Member Role: Primary Care Nurse Name: Allie Souza MD Position: [facility] Outreach Member Role: PCP Address: Address: [address] [place] [id number] Name: Key Dewitt RN Position: [facility] RN Member Role: Primary Care Nurse Care Team Related Persons Name: AIDEN GARCÍA Address: home [address] [place] [address]
--- OUTSIDE RECORDS SUMMARY | 2023-05-25 08:29 | XMS_ITS | Continuity of Care Document ---
Author Name Unknown Organization [facility] Physical Wa dicine and Rehabilitation Address [address] [place] [address]- Care Team Providers Care Rubber Splicer Name Role Phone Harley CHA, Allie Guzman Primary Care Physician [place] [facility] [place] Date(s): 01/04/23 - 02/03/23 [facility] Physical Medicine [facility] Rehabilitation [address] [place] [address]- Attending Physician: AdmJuan R chapman Admitting Physician: [...] Required Details, Route to Pharmacy Electronically, [facility]/pharmacy #2024, 1... Start Date: 12/15/22 Status: [...] Refills, Maintenance, 12/19/22 13:48:00 EST, Tablet, [facility]/pharmacy #5, Partial fill upon patient request [...] 01/04/23 11:46:00 EDT,Route to Pharmacy Electronically, [facility]/pharmacy #2025, 170, cm, 01/04/23 11:17:00 EDT, [...] Care Nurse Name: Charley Gamble RN Position: [facility] RN Member Role: Primary Care Nurse Name: Allie Souza MD Position: S Outreach Member Role: PCP Address: Address: [address] [place] [id number] Name: Key Dewitt RN Position: S RN Member Role: Primary Care Nurse Care Team Related Persons Name: ERINMYAAIDEN Combs Address: [address] [address]
[2023-05-25 09:50] LABS: Appearance Urine Turbid; Color Urine Yellow; Glucose Urine UA Negative (Negative); Leukocyte Esterase Urine Large (3+) (Negative); Nitrite Urine Negative (Negative); PH 7.5 (5.0-9.0); Specific Gravity - Urine <= 1.005 (1.005-1.025); UMIC TRIGGER UACC YES; Urine Blood Moderate (2+) (Negative); Urine Ketones Negative (Negative); Urine Protein Negative (Neg-Trace)
[2023-05-25 10:07] LABS: Bacteria Urine 2+ (None Seen); Hyaline Casts Urine 0-2 /LPF (0-2); Squamous Epithelial Cell Urine 0-2 /HPF (0-2); UACC Culture Trigger YES; WBC Urine >50 /HPF (0-5)
[2023-05-25] MEDS: cephALEXin 500 MG CAPSULE PO (10:37)
[2023-05-25] MEDS: Gabapentin 400 MG CAPSULE 800 MG PO (10:45)
--- NOTE | 2023-05-25 11:11 | PC.NURSE ---
New suprapubic 18fr, 30ml balloon inserted by Dr Tony, after this RN unable to irrigate. De La Garza patent at this time, draining yellow urine, cloudy with sediment noted. Plan to be transferred back to [facility]
--- NOTE | 2023-05-25 12:31 | PC.NURSE ---
Addendum entered by Valeriano Gardner 05/25/23 12:32: [id number]. Original Note: pt report given to nurse Melanie Davila at [facility]; awaiting [facility] pt pickers material handlers to transfer.
== END 2023-05-25 13:29 | disposition skilled nursing facility (03) ==
PROVIDERS: Emergency Provider Emergency Medicine; PCP Physician Assistant Medical
DX: T83.511A Infection and inflammatory reaction due to indwelling urethral catheter, initial encounter (principal); T83.098A Other mechanical complication of other urinary catheter, initial encounter; Y73.8 Miscellaneous gastroenterology and urology devices associated with adverse incidents, not elsewhere classified; Y92.129 Unspecified place in nursing home as the place of occurrence of the external cause; G82.50 Quadriplegia, unspecified
CPT/HCPCS: 51702; 51798; 81001; 87086; 99283; 99284

== ENCOUNTER 2024-12-19 20:26 | Emergency (ER) | payer MEDICARE, MEDICAID, SELFPAY ==
[2024-12-19 20:54] VITALS: BP 137/79; PULSE 81; RESP 16; TEMP 36.9; O2SAT 96
[2024-12-19 21:05] VITALS: BP 161/86; PULSE 80; O2SAT 98; BMI 26.1
--- NOTE | 2024-12-19 21:32 | ED_ITS ---
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 with De La Garza catheter which was changed 2 weeks ago since then been having thanh hematuria from irritation was irrigated prior to arrival and now is draining clear urine Related Data Allergies Allergy/AdvReac Type Severity Reaction Status Date / Time No Known Allergies Allergy Verified 12/19/24 21:07 Review of Systems Review of Systems: Yes all other systems are reviewed and are negative [facility] Past Medical History Medical History (Updated 12/19/24 @ 21:45 by Shaheed Kennedy MD) Suprapubic catheter Quadriplegia Social History Social History Alcohol intake: never Advance Directives: Yes Advance Directives on File: Yes Advance Directives Date on File: 05/25/23 Do you have a plan to hurt others: No Plan Physical Exam Vital Signs: Vital Signs: Last Vital Signs Temp 98.4 F 12/20/24 00:50 Pulse 81 12/20/24 00:50 Resp 16 12/20/24 00:50 BP 137/79 12/20/24 00:50 Pulse Ox 96 12/20/24 00:50 O2 Del Method Room Air 12/20/24 00:50 BMI result Body Mass Index 26.1 Appearance: Alert. Oriented X3. No acute distress. Eyes: PERRLA, No Nystagmus ENT: Pharynx normal. Oral Mucosa moist Neck: Normal inspection. Neck supple. CVS: Normal heart rate and rhythm. Pulses normal. no wheezing/rales/rhonchi Abdomen: Soft and nontender. Bowel sounds are present, no mass palpable, no CVA tenderness suprapubic catheter in place Skin: Skin warm and dry. Normal skin color. Normal skin turgor. Extremities: No lower extremity edema. Neuro: Quadriplegia Medical Decision Making Medical Decision Making [facility] Narrative: Patient with transient hematuria from suprapubic catheter which was placed 2 weeks which was irrigated and at this time no clear urine is coming bladder scan was done showed empty bladder Discharge Plan Discharge Clinical Impression: Encounter for suprapubic catheter care Patient Disposition: Xfer LTC Transfer Details: Bladder scan showed empty bladder with suprapubic catheter in place draining clear urine Instructions: How to Care for Your Suprapubic Catheter (DC) Interventions: ED Discharge Assessment Last Done: 12/20/24 00:50 Discharge Date/Time: 12/20/24 00:50 Print Language: Icelandic
--- NOTE | 2024-12-19 21:52 | PC.NURSE ---
report given to Melanie Banks RN at [facility], awaiting em[facility] transport.
--- NOTE | 2024-12-20 | PC.NURSE ---
on arrival approx 300mL of dark red urine emptied from clement bag, at this time approx 600mL clear urine emptied from clement bag.
[2024-12-20 00:50] VITALS: BP 137/79; PULSE 81; RESP 16; TEMP 36.9; O2SAT 96
== END 2024-12-20 00:50 ==
PROVIDERS: Emergency Provider Internal Medicine; PCP Physician Assistant Medical
DX: R31.9 Hematuria, unspecified (principal)
CPT/HCPCS: 99282; 99283